=== PATIENT | male | born 1980 | race Caucasian/White ===

== ENCOUNTER 2022-08-23 13:05 | Outpatient (REF) | payer OTHER, SELFPAY ==
--- NOTE | ~2022-08-23 | XR_ITS ---
EXAMINATION: XR ABDOMEN KUB CLINICAL INDICATION: Constipation. COMPARISON: None TECHNIQUE: AP view of the abdomen. FINDINGS: There is a nonobstructive bowel gas pattern. Mild to moderate stool seen within the colon more pronounced proximally. No radiopaque renal calculi. Mild bilateral hip degenerative joint changes are seen with cam femoral acetabular impingement, right greater than left. XR/XR KUB IMPRESSION: 1. Nonobstructive bowel gas pattern. 2. Mild to moderate colonic stool burden. 2. Degenerative changes in the hips bilaterally as detailed above.
[2022-08-23 15:14] LABS: MANUAL DIFF FLAG NO
[2022-08-23 15:17] LABS: Basophils Percent Auto 0.7 % (0-2); Eosinophils Absolute Auto 0.1 X10*3/uL (0.0-0.4); Eosinophils Percent Auto 1.7 % (0-4); Hematocrit 47.4 % (42.0-52.0); Imm Gran Abs Auto 0.03 X10*3/uL (0.00-0.03); Imm Gran Pct Auto 0.5 % (0.0-0.4); Lymphocytes Absolute Auto 1.7 X10*3/uL (1.2-4.9); Lymphocytes Percent Auto 29.1 % (20-40); Mean Corpuscular HGB Conc 33.8 g/dl (31.0-36.0); Mean Corpuscular Volume 91.9 fL (80.0-98.0); Monocytes Absolute Auto 0.4 X10*3/uL (0.1-1.2); Monocytes Percent Auto 7.4 % (2-11); Neutrophils Absolute Auto 3.6 x10*3/uL (2.0-8.3); Neutrophils Percent Auto 60.6 % (45-73); Platelet Count 265 X10*3/uL (160-400); Red Blood Count 5.16 X10*6/uL (4.60-5.80); Red Cell Distribution Width 12.4 % (11.0-16.0); White Blood Count 5.9 X10*3/uL (4.8-10.8)
[2022-08-23 15:27] LABS: Alanine Aminotransferase 25 U/L (0-40); Albumin Level 4.2 g/dL (3.5-5.0); Alkaline Phosphatase 48 U/L (39-117); Anion Gap 13 (12-20); Aspartate Amino Transferase 35 U/L (5-37); Bilirubin Direct 0.3 mg/dL (0.0-0.5); Bilirubin Total 0.6 mg/dL (0.0-1.0); Blood Urea Nitrogen 9 mg/dL (9-16); Carbon Dioxide 29 mmol/L (22-29); Chloride 106 mmol/L (96-108); Estimated Glomerular Filt Rate > 60; Glucose Random 91 mg/dL (60-115); Potassium 4.2 mmol/L (3.3-5.1); Sodium 144 mmol/L (135-145); Total Protein 6.6 g/dL (6.5-8.0)
[2022-08-23 15:33] LABS: Amylase 48 U/L (28-100)
== END 2022-08-23 13:06 | disposition home or self-care (01) ==
LOC: HO.HMGCX 13:05
PROVIDERS: Visit Provider Physician Assistant
DX: K59.00 Constipation, unspecified (principal); R10.13 Epigastric pain
CPT/HCPCS: 36415; 74018; 80048; 80076; 82150; 85025

== ENCOUNTER 2022-10-21 11:43 | Outpatient (REF) | payer OTHER, SELFPAY ==
[2022-10-21 15:02] LABS: TSH reflex Free T4 1.08 uIU/mL (0.32-4.0); Vitamin D 25-OH Total 22.9 ng/mL (>30)
[2022-10-21 15:44] LABS: Vitamin B12 442 pg/mL (200-900)
[2022-10-21 15:50] LABS: Folate 7.9 ng/mL (> or = 4.0)
[2022-10-28 12:19] LABS: Testosterone, Free 504.4 pg/mL (35.0-155.0); Testosterone, Total 2335 ng/dL (250-1100)
== END 2022-10-21 11:44 | disposition home or self-care (01) ==
LOC: HO.HMGCLDS 11:43
PROVIDERS: PCP Internal Medicine; Visit Provider Internal Medicine
DX: R53.82 Chronic fatigue, unspecified (principal)
CPT/HCPCS: 36415; 82306; 82607; 82746; 84402; 84403; 84443

== ENCOUNTER 2022-10-22 09:19 | Outpatient (REF) | payer OTHER, SELFPAY | END 2022-10-22 09:20 | disposition home or self-care (01) | LOC: HO.HMGCLNP 09:19 | PROVIDERS: PCP Internal Medicine; Visit Provider Nurse Practitioner Family | DX: R10.13 Epigastric pain (principal); K59.00 Constipation, unspecified | CPT/HCPCS: 87338 ==

== ENCOUNTER 2023-02-16 08:52 | Day surgery (SDC) | payer BC, SELFPAY ==
[2023-02-11 11:41] VITALS: BMI 28.1
--- NOTE | 2023-02-16 09:19 | MHC.SHP ---
Pre-Procedural Eval Section A Date of Service: 02/16/23 The patient is an INPATIENT: No The History & Physical has been completed within 30 days and I have reviewed it.: No Section B Chief Complaint: rectal bleeding,reflux disease,bacterial intestina Relevant Family History (Specify if Yes): No Relevant Social History: Tobacco Use (FORMER SMOKER) Present Medications: see Short Stay Collaborative assessment Medical History: Significant History (ADD (attention deficit disorder) Chronic fatigue Chronic GERD History of Helicobacter pylori infection Hypogonadism in male Irregular bowel habits) History of Previous Operations: No relevant previous surgery Allergies: Allergies Allergy/AdvReac Type Severity Reaction Status Date / Time No Known Allergies Allergy Verified 02/16/23 09:06 Review of Systems Sugical H&P ROS: Negative: Constitution, Cardiovascular, Respiratory and Gastrointestinal Exam Surgical H&P Exam: Normal: Heart, Normal: Lungs, Normal: Extremities and Normal: Abdomen Plan Diagnosis/Plan: Unchanged I have reviewed the history and physical and performed a pertinent physical examination on my patient. No changes have occurred unless specified. Time Spent With Patient Time: Total time managing care of this patient today ____ minutes.
[2023-02-16 09:22] VITALS: BP 137/75; PULSE 76; RESP 18; TEMP 36.6; O2SAT 100
--- NOTE | 2023-02-16 09:48 | P.CONAN_ITS ---
FORM[facility], LATER [facility] Active Problems Active Problems: All Active Problems (Updated 10/29/22 @ 16:19 by Winsome Ruano MD) Abdominal pain (Acute) Irregular bowel habits (Acute) Hypogonadism in male (Acute) ADD (attention deficit disorder) (Acute) Chronic GERD (Acute) Chronic fatigue (Acute) Past Medical History Medical History ADD (attention deficit disorder) Chronic fatigue Chronic GERD History of Helicobacter pylori infection Hypogonadism in male Irregular bowel habits Functional capacity: independent ambulation Family History Family history of problems with anesthesia: No Surgical History Surgical History (Updated 02/16/23 @ 09:24 by Jayna Parson RN) Hx of appendectomy Hx of left inguinal hernia repair Social History Social History Housing: House Patient Tobacco Use Status: Former Tobacco user e-Cigarette/Vaping Use: Currently Using Are you DNR?: No Advance Directives: No Advance Directives Information Provided: Yes Nutrition Risks: No Nutritional Risk Current occupational status: other Current occupation: self employed Cognitive needs: No Hearing needs: No Vision needs: No Meds Allergies Allergy/AdvReac Type Severity Reaction Status Date / Time No Known Allergies Allergy Verified 02/16/23 09:06 Active Medications: Current Medications Lactated Ringer's (Lr) 1,000 mls @ 50 mls/hr IVCONT .Q20H CHARLIE Home Medications Medication Instructions Recorded Confirmed Last Taken Type anastrozole 1 mg tablet 0 mg PO 08/23/22 10/29/22 Unknown History dextroamphetamine sulfate 15 mg 15 mg PO BID 08/23/22 02/16/23 Unknown History capsule,extended release psyllium husk 3 gram/3 gram oral g PO 08/23/22 10/29/22 Unknown History powder testosterone cypionate 100 mg/mL 50 mg IM Q2W 08/23/22 02/16/23 Unknown History intramuscular oil alprazolam 0.5 mg tablet 0.5 mg PO DAILY PRN Anxiety 10/29/22 02/16/23 Unknown History Exam Exam Date and Time: February 16, 2023 0948 Height,Weight and Vital Signs: Height 5 ft 11 in Weight 91.626 kg Last Vital Signs Temp 97.9 F 02/16/23 09:22 Pulse 76 02/16/23 09:22 Resp 18 02/16/23 09:22 BP 137/75 02/16/23 09:22 Pulse Ox 100 02/16/23 09:22 O2 Del Method Room Air 02/16/23 09:22 Airway Mallampati Class: II TM Dist: >3cm Neck ROM: Full Heart: RRR Lungs: CTA Assessment and Plan Final Anesthetic Review Family History of Problems with Anesthesia: No NPO: Yes ASA Class: II Final Preanesthetic Review: Meds/Allgs Chart Reviewed and Consent Obtained/Reviewed Patient Risk: Low Procedure Risk: Low Anesthetic Plan Anesthetic Plan: MAC: Disposition: Standard PACU
[2023-02-16] MEDS: Lactated Ringers 1,000 ML 50 ML IVCONT (10:01)
--- NOTE | 2023-02-16 10:16 | PM.OP ---
Brief Operative Note Date of Service: 02/16/23 Pre-op diagnosis: colon cancer screening, GERD, dyspepsia, abdominal bloating Post-op diagnosis: other ( GERD, GASTRITIS, COLON POLYP, DIVERTICULOSIS, HEMORRHOIDS) Procedure: FLEXIBLE TRANSORAL UPPER GASTROINTESTINAL ENDOSCOPY WITH BIOPSIES AND COLONOSCOPY TILL CECUM WITH BIOPSIES AND SNARE POLYPECTOMY Surgeon: Carissa Hernandez MD Anesthesia: MAC Was an Serials Librarian used for this Procedure?: Yes Serials Librarian: Khanh Jolly Estimated blood loss (mL): 1 Pathology: other (A) BX Small Bowel (R/O Celiac's) B) BX Gastric Antrum (R/O H.Pylori) C) BX GE Junction (R/O Desir's) D) BX Right Colon (R/O Microscopic Colitis) E) Polyp Ascending Colon F) ) Condition: stable Disposition: PACU
--- NOTE | 2023-02-16 10:17 | P.OP_ITS ---
Operative Note Operative Note Date of Service: 02/16/23 Narrative: Pre-op diagnosis: colon cancer screening, GERD, dyspepsia, abdominal bloating Post-op diagnosis:?other ( GERD, GASTRITIS, COLON POLYP, DIVERTICULOSIS, HEMORRHOIDS) Surgeon: Carissa Hernandez MD Anesthesia:?MAC FLEXIBLE TRANSORAL UPPER GASTROINTESTINAL ENDOSCOPY WITH BIOPSIES AND COLONOSCOPY TILL CECUM WITH BIOPSIES AND SNARE POLYPECTOMY UPPER ENDOSCOPY Consent: Indications for the procedure and potential complications of bleeding, perforation, reaction to medications and missed diagnosis were discussed with the patient and informed consent was obtained. Instrument: Olympus GIF H 190 mid size upper endoscope Monitoring: Vital signs and clinical assessment, continuous EKG monitoring, Pulse oximetry, Carbon Dioxide monitoring and blood pressure monitoring were done throughout the procedure. Procedure: The patient was placed in the left lateral decubitis position and pre-procedure medications were administered and a bite block was placed. The endoscope was inserted into the mouth and advanced under direct vision to the third part of duodenum. A careful inspection was made as the upper endoscope was withdrawn including a retroflexed examination of the proximal stomach; Findings and interventions are described below. Findings: Larynx: Normal Esophagus: GE junction at 40 cms. A single 1 cms healing erosion at GE junction. Irregular Z line - biopsied to check for Desir's. Stomach: Mild gastric erythema. Biopsies were obtained. Grade 2 flap valve on retroflexed examination of the cardia. Duodenum: Normal bulb and descending duodenum. Biopsies obtained from 3rd part of duodenum to check for celiac sprue. Intervention: Biopsies as noted above COLONOSCOPY PROCEDURE NOTE Consent: Indications for the procedure and potential complications of bleeding, perforation, reaction to medications and missed diagnosis were discussed with the patient and informed consent was obtained. Instrument: Olympus PCF H 190 L variable stiffness pediatric colonoscope Monitoring: Vital signs and clinical assessment, intermittent blood pressure monitoring, continuous EKG monitoring, Pulse oximetry and Carbon Dioxide monitoring were done throughout the procedure. Colon withdrawl time was 18 minutes. Procedure: The patient was placed in the left lateral decubitis position and pre-procedure medications were administered. After a digital rectal examination of the ano-rectum, the video colonoscope was inserted into the rectum and advanced through the colon to the cecum. The colonoscope was slowly withdrawn in a retrograde panoramic fashion and the colon mucosa was carefully examined including a retroflexed view of the rectum. Findings and interventions are described below. Procedure Difficulty: colon was long and tortuous, there was spasm and recurrent loop formation. No maneuvers were required Findings: Terminal Ileum: Distal 8 cms was examined and apeared normal Cecum: partially evaluated due to some undigested vegetable matter which could not be suctioned Ascending Colon: A 6-7 mm sessile polyp removed with a cold snare Transverse Colon: Normal Descending Colon: Normal Sigmoid Colon: Moderate diverticulosis Rectum: Normal Ano-rectum: Moderate internal hemorrhoids and perianal skin tags Colon preparation: Good after copious irrigation Impression and Post Procedure Diagnosis: Endoscopy Findings: ESOPHAGUS: GE junction at 40 cms. A single 1 cms healing erosion at GE junction. Irregular Z line - biopsied to check for Desir's. STOMACH: Mild gastritis DUODENUM: Normal - biopsied to check for celiac sprue Colonoscopy Findings: One small polyp removed Moderate diverticulosis seen in the sigmoid colon Moderate hemorrhoids on retroflexed exam. Plan: Await pathology results Patient has an appointment on 03/02/23 in the GI Clinic with Briana Ward FNP- BC . Repeat Colonoscopy interval based on path results - in 5 years if polyps are adenomatous and due to suboptimal prep in the cecum. Above findings were reviewed with the patient and GERD, colon polyps and diverticulosis handouts were given in the discharge area
[2023-02-16 11:14] VITALS: BP 89/43; PULSE 71; RESP 16; TEMP 36.2; O2SAT 96
[2023-02-16 11:29] VITALS: BP 102/42; PULSE 60; RESP 16; O2SAT 96
[2023-02-16 11:37] VITALS: BP 129/90; PULSE 70; RESP 16; O2SAT 100
[2023-02-16 11:40] VITALS: BP 118/60; PULSE 64; RESP 16; TEMP 36.6; O2SAT 100
--- NOTE | 2023-02-16 11:45 | HO.POSTANES ---
Post Anesthesia Evaluation Post Anesthesia Evaluation Vital Signs: Vital Signs Temp Pulse Resp BP Pulse Ox O2 Del Method 02/16/23 11:40 97.9 F 64 16 118/60 100 Room Air 02/16/23 11:37 70 16 129/90 H 100 Room Air 02/16/23 11:29 60 16 102/42 L 96 Room Air 02/16/23 11:14 97.2 F 71 16 89/43 L 96 Room Air 02/16/23 09:22 97.9 F 76 18 137/75 100 Room Air Anesthesia: Monitored Mental Status: Awake Pain Control: Satisfactory Nausea/Vomiting: None Hydration: Adequate Anesthesia-Related Issues: No Anes. Related Issues
== END 2023-02-16 12:06 | disposition home or self-care (01) ==
PROVIDERS: PCP Internal Medicine; Visit Provider Internal Medicine Gastroenterology
PROC: (CPT 45385; principal; 2023-02-16 10:00)
DX: K62.5 Hemorrhage of anus and rectum (principal); D12.2 Benign neoplasm of ascending colon; K57.30 Diverticulosis of large intestine without perforation or abscess without bleeding; K64.8 Other hemorrhoids; K58.1 Irritable bowel syndrome with constipation; K21.9 Gastro-esophageal reflux disease without esophagitis; K29.50 Unspecified chronic gastritis without bleeding; K20.80 Other esophagitis without bleeding; A04.8 Other specified bacterial intestinal infections; R53.82 Chronic fatigue, unspecified; E29.1 Testicular hypofunction; F98.8 Other specified behavioral and emotional disorders with onset usually occurring in childhood and adolescence; Z79.899 Other long term (current) drug therapy; Z87.891 Personal history of nicotine dependence
CPT/HCPCS: 45385; 45380; 43239; 88305; 88342

== ENCOUNTER → 2023-03-02 10:03 | Outpatient (BNVA) | payer BC, SELFPAY | PROVIDERS: PCP Internal Medicine; Visit Provider Nurse Practitioner Family | DX: Z13.89 Encounter for screening for other disorder (principal) ==

== ENCOUNTER 2023-03-13 09:18 | Day surgery (SDC) | payer BC, SELFPAY ==
[2023-03-10 14:49] VITALS: BMI 29.0
--- NOTE | 2023-03-12 10:30 | P.CONAN_ITS ---
Documented by User: Landy Daniel NP 03/12/23 10:30 HPI - Anesthesia Eval Consult details Narrative: 42yo M for Hemorrhoidectomy s/p EGD/[place] 01/2023 with MAC [facility] Active Problems Active Problems: All Active Problems (Updated 03/02/23 @ 14:27 by ROBERT Tompkins) Hemorrhoids (Acute) Diverticulosis (Acute) Tubular adenoma (Acute) Abdominal pain (Acute) Irregular bowel habits (Acute) Hypogonadism in male (Acute) ADD (attention deficit disorder) (Acute) Chronic GERD (Acute) Chronic fatigue (Acute) Past Medical History Medical History (Updated 03/02/23 @ 14:27 by ROBERT Tompkins) ADD (attention deficit disorder) Chronic fatigue Chronic GERD Diverticulosis History of Helicobacter pylori infection Hypogonadism in male Irregular bowel habits Tubular adenoma Tubular adenoma of colon Family History Family history of problems with anesthesia: No Surgical History Surgical History (Updated 03/02/23 @ 15:18 by Chuy Ware MD) History of esophagogastroduodenoscopy (EGD) Hx of appendectomy Hx of colonoscopy Hx of left inguinal hernia repair Social History Social History (Updated 03/02/23 @ 15:02 by LISA Linares) Housing: House Alcohol intake: current Alcohol intake frequency: a few times a week Alcohol type: hard liquor Patient Tobacco Use Status: Former Tobacco user e-Cigarette/Vaping Use: Currently Using Second Hand Smoke Exposure: No Use of substances other than those prescribed or required for medical reasons: No Are you DNR?: No Advance Directives: No Advance Directives Information Provided: Yes Advance Directives on File: No Current occupational status: other Current occupation: self employed Cognitive needs: No Hearing needs: No Vision needs: No Meds Allergies Allergy/AdvReac Type Severity Reaction Status Date / Time No Known Allergies Allergy Verified 03/02/23 15:01 Home Medications Medication Instructions Recorded Confirmed Last Taken Type anastrozole 1 mg tablet 1 mg PO USEASDIRECTD 08/23/22 03/10/23 Unknown History dextroamphetamine sulfate 15 mg 15 mg PO BID 08/23/22 03/10/23 Unknown History capsule,extended release psyllium husk 3 gram/3 gram oral g PO 08/23/22 03/02/23 Unknown History powder testosterone cypionate 100 mg/mL 50 mg IM Q2W 08/23/22 03/10/23 Unknown History intramuscular oil alprazolam 0.5 mg tablet 0.5 mg PO DAILY PRN Anxiety 10/29/22 03/10/23 Unknown History Exam Exam Date and Time: March 12, 2023 1030 Height,Weight and Vital Signs: Height 5 ft 11 in Weight 94.347 kg Assessment and Plan Assessment Anesthesia Assessment: Chart Reviewed Final Anesthetic Review Family History of Problems with Anesthesia: No Documented by User: Giorgio Mariano MD 03/13/23 10:36 PMFSH Past Medical History Medical History (Updated 03/02/23 @ 14:27 by Briana Ward [facility]) ADD (attention deficit disorder) Chronic fatigue Chronic GERD Diverticulosis History of Helicobacter pylori infection Hypogonadism in male Irregular bowel habits Tubular adenoma Tubular adenoma of colon Surgical History Surgical History (Updated 03/02/23 @ 15:18 by Chuy Ware MD) History of esophagogastroduodenoscopy (EGD) Hx of appendectomy Hx of colonoscopy Hx of left inguinal hernia repair History of Problems with Anesthesia: No Social History Social History (Updated 03/02/23 @ 15:02 by LISA Linares) Housing: House Alcohol intake: current Alcohol intake frequency: a few times a week Alcohol type: hard liquor Patient Tobacco Use Status: Former Tobacco user e-Cigarette/Vaping Use: Currently Using Second Hand Smoke Exposure: No Use of substances other than those prescribed or required for medical reasons: No Are you DNR?: No Advance Directives: No Advance Directives Information Provided: Yes Advance Directives on File: No Current occupational status: other Current occupation: self employed Cognitive needs: No Hearing needs: No Vision needs: No Meds Allergies Allergy/AdvReac Type Severity Reaction Status Date / Time No Known Allergies Allergy Verified 03/02/23 15:01 Home Medications Medication Instructions Recorded Confirmed Last Taken Type anastrozole 1 mg tablet 1 mg PO USEASDIRECTD 08/23/22 03/10/23 Unknown History dextroamphetamine sulfate 15 mg 15 mg PO BID 08/23/22 03/10/23 Unknown History capsule,extended release psyllium husk 3 gram/3 gram oral g PO 08/23/22 03/02/23 Unknown History powder testosterone cypionate 100 mg/mL 50 mg IM Q2W 08/23/22 03/10/23 Unknown History intramuscular oil alprazolam 0.5 mg tablet 0.5 mg PO DAILY PRN Anxiety 10/29/22 03/10/23 Unknown History Exam Airway Mallampati Class: II TM Dist: >3cm Neck ROM: Full Heart: rrr Lungs: cta Assessment and Plan Assessment Anesthesia Assessment: Anesthesia Plan Discussed Final Anesthetic Review History of Problems with Anesthesia: No NPO: Yes ASA Class: II Final Preanesthetic Review: No Changes in Pt Med Stat and Consent Obtained/Reviewed Patient Risk: Intermediate Procedure Risk: Intermediate Anesthetic Plan Anesthetic Plan: GA Disposition: Standard PACU
--- NOTE | 2023-03-12 11:41 | MHC.SHP ---
Pre-Procedural Eval Section A Date of Service: 03/12/23 The patient is an INPATIENT: No Changes since office visit: No Cold of Flu in the past 2 weeks, No New Medical Problems, No Changes in Medication and No Patient answered all questions The History & Physical has been completed within 30 days and I have reviewed it.: Yes Section B Chief Complaint: Unspecified hemorrhoids Allergies: Allergies Allergy/AdvReac Type Severity Reaction Status Date / Time No Known Allergies Allergy Verified 03/02/23 15:01 Plan I have reviewed the history and physical and performed a pertinent physical examination on my patient. No changes have occurred unless specified. Time Spent With Patient Time: Total time managing care of this patient today ____ minutes.
[2023-03-13 10:08] VITALS: BP 120/72; PULSE 70; RESP 16; TEMP 36.7; O2SAT 96
[2023-03-13] MEDS: Lactated Ringers 1,000 ML 100 ML IVCONT (10:09)
--- NOTE | 2023-03-13 11:06 | P.OP_ITS ---
Operative Note Operative Note Date of Service: 03/13/23 Narrative: Preoperative diagnosis: [] Symptomatic external and internal hemorrhoids Postop diagnosis: [] Save Procedure [] hemorrhoidectomy internal and external Surgeon: [] Chaz Population Health Manager: [] Type of Anesthesia: [] General Indication for surgery: [] Symptomatic hemorrhoids Findings: [] At the 3 and 07:00 o'clock positions, large and medium-sized hemorrhoids. Rectal exam demonstrated no other pathology. Patient is brought to the operating room, placed in the operative table in a supine position, after adequate level of general anesthesia was induced, patient was placed in lithotomy position and rectal exam performed. Next the anorectal area was prepped and draped in usual sterile fashion. The symptomatic hemorrhoids at the 3 and 07:00 o'clock positions reach grasped and transected at their base using double firing of many ligature device. Specimens were sent to pathology. Wounds were irrigated, secured hemostasis, and infiltrated with 0.5% Marcaine with 1% lidocaine mixture. Gelfoam plug followed by dressing were applied. Sponge, needle, and instrument counts were reported to be correct. Patient tolerated the procedure well and emerged anesthesia stable condition. EBL minimal
[2023-03-13 11:18] VITALS: BP 113/61; PULSE 72; RESP 16; TEMP 36.6; O2SAT 96
[2023-03-13 11:23] VITALS: BP 111/68; PULSE 66; RESP 16; O2SAT 97
[2023-03-13 11:28] VITALS: BP 116/62; PULSE 70; RESP 16; O2SAT 97
[2023-03-13] MEDS: oxyCODONE HCl Immed Release 5 MG TABLET PO (11:28)
[2023-03-13 11:33] VITALS: BP 105/67; PULSE 70; RESP 16; O2SAT 98
[2023-03-13 11:48] VITALS: BP 131/67; PULSE 62; RESP 16; TEMP 36.6; O2SAT 98
== END 2023-03-13 12:15 | disposition home or self-care (01) ==
PROVIDERS: PCP Internal Medicine; Visit Provider Surgery
PROC: (CPT 46260; principal; 2023-03-13 11:10)
DX: K64.8 Other hemorrhoids (principal); K64.4 Residual hemorrhoidal skin tags; K59.09 Other constipation; K57.30 Diverticulosis of large intestine without perforation or abscess without bleeding; Z86.010 Personal history of colon polyps; K21.9 Gastro-esophageal reflux disease without esophagitis; Z86.19 Personal history of other infectious and parasitic diseases; F98.8 Other specified behavioral and emotional disorders with onset usually occurring in childhood and adolescence; R53.82 Chronic fatigue, unspecified; Z79.899 Other long term (current) drug therapy; Z87.891 Personal history of nicotine dependence
CPT/HCPCS: 46260; 88304; J0131; J0690; J1100; J1885; J2405; J2795

== ENCOUNTER → 2023-03-20 10:09 | Outpatient (BNVA) | payer BC, SELFPAY | PROVIDERS: PCP Internal Medicine; Visit Provider Surgery | DX: Z13.89 Encounter for screening for other disorder (principal) ==

== ENCOUNTER → 2023-04-13 10:13 | Outpatient (BNVA) | payer BC, SELFPAY | PROVIDERS: PCP Internal Medicine; Visit Provider Surgery ==

== ENCOUNTER → 2023-05-14 14:12 | Outpatient (BNVA) | payer BC, SELFPAY | PROVIDERS: PCP Internal Medicine; Visit Provider Surgery ==

== ENCOUNTER 2023-06-30 13:46 | Outpatient (AMB) | payer BC, SELFPAY ==
--- NOTE | 2023-06-30 13:54 | MHC.OFFVIS ---
Intake Vital Signs 06/30/23 14:00 Height 5 ft 11 in Weight 203 lb BMI 28.3 BP 118/74 Blood Pressure Location Lt brachial Position Sitting Intake Visit Reasons: wound check, post hemorrhoidectomy Intake Note: This patient presents for an assessment for a wound check status post hemorrhoidectomy. Patient c/o; reports leakage, denies problems with bowel movements. 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 He has a marked improvement of his anorectal symptoms. He has a minimal staining/drainage. He is tolerating a diet. He is having normal bowel habits. He has no other GI issues or complaints. [facility] Medical History ADD (attention deficit disorder) Annual visit for general adult medical examination with abnormal findings Chronic fatigue Chronic GERD Diverticulosis History of Helicobacter pylori infection Hypogonadism in male Irregular bowel habits Muscle ache of extremity Tubular adenoma of colon Surgical History Hemorrhoids History of esophagogastroduodenoscopy (EGD) History of hemorrhoidectomy (03/13/23) Hx of appendectomy Hx of colonoscopy Hx of left inguinal hernia repair Social History Housing: House Alcohol intake: current Alcohol intake frequency: a few times a week Alcohol type: hard liquor Patient Tobacco Use Status: Former Tobacco user e-Cigarette/Vaping Use: Never Used Second Hand Smoke Exposure: No Current occupational status: other Current occupation: self employed Cognitive needs: No Hearing needs: No Vision needs: No Physical Exam Vital Signs: Last Vital Signs BP 118/74 06/30/23 14:00 BMI result Body Mass Index 28.3 GI Other: Anorectal wounds demonstrated almost complete healing. No evidence of any infection or drainage Assessment & Plan Assessment & Plan (1) Hemorrhoids: Code(s): K64.9 - Unspecified hemorrhoids Plan Patient has been given local instructions, and continue stool softeners, and will follow-up p.r.n.. Coding Level of Care Code Global (75409) Diagnoses Hemorrhoids K64.9
[2023-06-30 14:00] VITALS: BP 118/74; BMI 28.3
== END 2023-06-30 14:14 | disposition home or self-care (01) ==
PROVIDERS: PCP Internal Medicine; Visit Provider Surgery
DX: K64.9 Unspecified hemorrhoids (principal)
CPT/HCPCS: 99213

== ENCOUNTER → 2023-06-30 13:46 | Outpatient (BNVA) | payer BC, SELFPAY | PROVIDERS: PCP Internal Medicine; Visit Provider Surgery ==

== ENCOUNTER 2023-07-04 09:21 | Outpatient (AMB) | payer BC, SELFPAY ==
[2023-07-04 09:55] VITALS: BP 136/72; PULSE 72; TEMP 36.6; O2SAT 97
--- NOTE | 2023-07-04 09:55 | MHC.OFFWIV ---
Intake Vital Signs 07/04/23 09:55 Height 5 ft 11 in BP 136/72 Blood Pressure Location Rt brachial Position Sitting Pulse 72 Pulse Source Pulse Oximeter Temp 97.8 F Temp Source Temporal Artery Scan Pulse Oximetry (%) 97 Oxygen Delivery Method Room Air Intake Visit Reasons: EST/left arm pain Intake Note: pt is here for c/o right arm pain, 1 month denies injury Patient Tobacco Use Status: Former Tobacco user Allergies No Known Allergies Allergy (Verified 07/04/23 09:56) Do you need a note to return to daycare/school/sports/work: No HPI EST/left arm pain HPI Details Patient is a 43-year-old male comes to the walk-in clinic complaining of 1 month of left arm pain that started after repetitive work duties, including sanding with the right arm. There was no fall or acute trauma. Pain has started the day following the work duties. No prior history arm issues. No radicular pain, including no chest pain, cough, shortness of breath, fatigue, weakness or dizziness, or other significant associated symptoms. The extremity has no tingling currently, although he states there was some while running a few days ago. [facility] Medical History ADD (attention deficit disorder) Annual visit for general adult medical examination with abnormal findings Chronic fatigue Chronic GERD Diverticulosis History of Helicobacter pylori infection Hypogonadism in male Irregular bowel habits Muscle ache of extremity Tubular adenoma of colon Surgical History Hemorrhoids History of esophagogastroduodenoscopy (EGD) History of hemorrhoidectomy (03/13/23) Hx of appendectomy Hx of colonoscopy Hx of left inguinal hernia repair Social History Housing: House Alcohol intake: current Alcohol intake frequency: a few times a week Alcohol type: hard liquor Patient Tobacco Use Status: Former Tobacco user e-Cigarette/Vaping Use: Never Used Second Hand Smoke Exposure: No Current occupational status: other Current occupation: self employed Cognitive needs: No Hearing needs: No Vision needs: No Review of Systems Const All systems reviewed & are unremarkable except as noted in HPI and below Physical Exam Vital Signs: Last Vital Signs Temp 97.8 F 07/04/23 09:55 Pulse 72 07/04/23 09:55 BP 136/72 07/04/23 09:55 Pulse Ox 97 07/04/23 09:55 Oxygen Delivery Method Room Air 07/04/23 09:55 Const General: cooperative, healthy appearing, comfortable, no acute distress, alert, awake, Physically active and well groomed; No anxious, diaphoretic, ill appearing, intoxicated appearing, poor hygiene or tired appearing Nutritional Appearance: average body habitus Orientation/consciousness: oriented to person Limitations: no limitations Resp Effort & Inspection: normal respiratory effort Cardio Palpation: normal PMI Rate: regular rate Rhythm: regular rhythm Heart sounds: S1 normal heart sound present and S2 normal heart sound present Skin Other: Good color, warm and dry Neuro General: oriented to person Extrem General: Yes no clubbing, cyanosis or edema Right upper extremity: normal to inspection, full ROM, normal capillary refill, shoulder/upper arm (Normal exam) Details: normal to inspection and elbow/forearm (Slowly decreased strength of the right forearm due to pain) Details: normal to inspection, tenderness (Medial significantly but also lateral epicondyle) Location: of the lateral epicondyle and of the medial epicondyle, normal ROM and distal pulses intact; no swelling, no ecchymosis, no foreign bodies and no deformity; no cyanosis and no edema Psych Appearance: grossly normal Mental Status: mental status grossly normal Speech and movement: Normal speech and movement present Affect: normal affect Attitude: cooperative Thought process: Normal thought process present Insight: Good insight present (Psych) Judgement: Good judgement present (Psych) Assessment & Plan Assessment & Plan (1) Epicondylitis elbow, medial: Code(s): M77.00 - Medial epicondylitis, unspecified elbow Plan: Patient developed right medial epicondylitis and to a lesser extent lateral epicondylitis, after repetitive use as well as heavy vibrating to full use with work duties. He states that he works for himself. We discussed rest from aggravating factors, ice, compression, or a supportive elbow strap, and elevating the extremity, especially at night or whenever at rest. Gentle [id number] exercise discussed. He also works out at the gym, but we discussed resting from this for the next 2 weeks to allow healing time. He already has ibuprofen 800 mg at home, which he can start for the next 2 weeks, and we discussed taking it with food to avoid GI side effects. He does not have baseline high blood pressure, but we discussed monitoring it as it is a little elevated today. He will follow up if symptoms persist or worsen Coding Level of Care Code Est Pt Level 4 (51172) Diagnoses Epicondylitis elbow, medial M77.00
== END 2023-07-04 11:00 | disposition home or self-care (01) ==
PROVIDERS: PCP Internal Medicine; Visit Provider Physician Assistant Medical
DX: M77.00 Medial epicondylitis, unspecified elbow (principal)
CPT/HCPCS: 99214

== ENCOUNTER 2023-09-07 11:08 | Outpatient (AMB) | payer BC, SELFPAY ==
[2023-09-07 11:21] VITALS: BP 155/79; PULSE 69; BMI 28.7
--- NOTE | 2023-09-07 11:21 | A.OFFVIS_ITS ---
Intake Vital Signs 09/07/23 11:21 Height 5 ft 11 in Weight 205 lb 7.533 oz BMI 28.7 BP 155/79 H Blood Pressure Location Rt brachial Position Sitting Pulse 69 Intake Visit Reasons: 6 month follow up Intake Note: Patient presents to in office visit today in follow up of diverticulosis. CC: Patient reports acid reflux and constipation are well managed with medications. Denies having any new GI symptoms today. Residential Support Specialist Required: No Allergies No Known Allergies Allergy (Verified 07/04/23 09:56) HPI 6 month follow up HPI Details LAST VISIT: External hemorrhoid Patient reports to have external hemorrhoid that bothers him when he has a bowel movement. Will refer him to surgery GERD (gastroesophageal reflux disease) Continue omeprazole every morning. Patient reports occasional acid reflux at night time. Patient states that sometimes he stress eats late at night. Encourage patient try to avoid eating late at night and staying upright for minimum 3 hours after meals. Will give him script for famotidine. IBS (irritable bowel syndrome) Occasional postprandial abdominal bloating. Discussed with patient avoiding dietary triggers. Low FODMAP diet discussed with patient. Tubular adenoma Tubular adenoma without high-grade dysplasia or carcinoma found. Patient will need to return for colorectal screening in 5 years, sooner if clinically necessary. Diverticulosis Discussed with patient high-fiber diet. List of food high in fibre provided to patient. Patient denies having any abdominal pain or discomfort. Patient can continue taking psyllium husk. Status post colonoscopy Patient denies any ill effects from the prep, anesthesia procedure itself. Tubular adenoma found without high-grade dysplasia or carcinoma. Patient also had moderate diverticulosis of sigmoid colon. Diet discussed with patient. I will see him in 6 months, sooner on as needed basis. Patient is agreeable to this plan and verbalizes understanding of instructions. He was given the opportunity to ask questions and all questions answered. ? TODAY'S VISIT: Patient is here today for follow-up. Patient reports that he has been doing fairly well. Moving his bowels better. Takes fiber supplement which seems to be helpful. Patient also takes MiraLax every other day. Patient had hemorrhoidectomy March 13 and finally starting to feel better. Patient denies melena, hematochezia, unintentional weight loss or ribbon like stools. Patient reports that omeprazole is help him acid reflux. He takes famotidine on as needed basis at bedtime. Patient denies dyspepsia, dysphagia or odynophagia. Occasional symptoms of postprandial abdominal bloating and acid reflux depending on what he eats. Patient denies any other GI concerning symptoms. Denies any nausea or vomiting. Denies any abdominal pain or discomfort. Reports to have good appetite PFSH Medical History Annual visit for general adult medical examination with abnormal findings Muscle ache of extremity Diverticulosis Tubular adenoma of colon Irregular bowel habits History of Helicobacter pylori infection Hypogonadism in male ADD (attention deficit disorder) Chronic GERD Chronic fatigue Surgical History History of hemorrhoidectomy (03/13/23) Hemorrhoids History of esophagogastroduodenoscopy (EGD) Hx of colonoscopy Hx of left inguinal hernia repair Hx of appendectomy Social History Housing: House Alcohol intake: current Alcohol intake frequency: a few times a week Alcohol type: hard liquor Patient Tobacco Use Status: Former Tobacco user e-Cigarette/Vaping Use: Never Used Second Hand Smoke Exposure: No Current occupational status: other Current occupation: self employed Cognitive needs: No Hearing needs: No Vision needs: No Review of Systems Const Denies weight gain and Denies weight loss ENT Reports no additional complaints, Denies dysphagia and Denies odynophagia Card Reports no additional complaints Resp Reports no additional complaints GI Denies abdominal pain, Denies belching, Denies melena, Denies bloating, Denies change in bowel habits, Denies dysphagia, Denies excessive flatus, Denies dyspepsia, Denies heartburn, Denies diarrhea, Denies loose stools, Denies nausea, Denies odynophagia and Denies vomiting Reports no additional complaints Musc Reports no additional complaints Neuro Reports no additional complaints Psych Reports no additional complaints Endo Reports no additional complaints Physical Exam Vital Signs: Last Vital Signs Pulse 69 09/07/23 11:21 BP 155/79 H 09/07/23 11:21 BMI result Body Mass Index 28.7 Const General: healthy appearing, no acute distress and well developed Nutritional Appearance: well nourished Orientation/consciousness: patient oriented x3 HEENT Head: Yes normal to inspection, Yes normocephalic and Yes atraumatic Face and sinus: Yes normal facial exam Mouth: Normal oral and palatal mucosa present Throat: Yes posterior oropharynx normal, Yes tonsils normal and Yes uvula midline Eyes General: appearance normal, both eyes and all related structures Neck Neck: Yes normal visual inspection, Yes full ROM and Yes trachea midline Thyroid: Thyroid normal Resp Effort & Inspection: normal respiratory effort, able to speak in complete sentences, no tracheal deviation and symmetric chest movement Auscultation: clear to auscultation bilaterally Cardio Rate: regular rate Heart sounds: S1 normal heart sound present and S2 normal heart sound present GI Inspection: Yes normal to inspection and No distended Palpation (GI): Soft to palpation, not firm, nontender and No hepatosplenomegaly present Auscultation: normal bowel sounds General: Yes no CVA tenderness Back/Spine/Pelvis Back: no CVA tenderness Skin General skin exam: elasticity normal, turgor normal and dry skin Neuro General: patient oriented x3 Psych Appearance: grossly normal Mental Status: mental status grossly normal Speech and movement: Normal speech and movement present Assessment & Plan Assessment & Plan (1) Hemorrhoids: Code(s): K64.9 - Unspecified hemorrhoids Qualifiers: Hemorrhoid type: unspecified Qualified Code(s): K64.9 - Unspecified hemorrhoids (2) Diverticulosis: Code(s): K57.90 - Diverticulosis of intestine, part unspecified, without perforation or abscess without bleeding (3) Chronic GERD: Comment: EGD done by Dr. Hernandez 02/16/2023 Code(s): K21.9 - Gastro-esophageal reflux disease without esophagitis (4) Constipation: Code(s): K59.00 - Constipation, unspecified Qualifiers: Constipation type: slow transit constipation Qualified Code(s): K59.01 - Slow transit constipation Plan Patient was encouraged to avoid dietary triggers and late night snacking. Staying upright for minimum 3 hours after meals discussed with patient. Continue omeprazole and famotidine. Continue bowel regimen with fiber supplement. Patient can continue taking magnesium at bedtime and MiraLax every other day as needed. Patient was also encouraged to increase fluid intake and activity to promote better bowel motility. Patient was encouraged to call his surgeon for follow-up appointment that he missed couple weeks ago. I will see patient in 1 year, sooner on as needed basis. Patient is agreeable to this plan and verbalizes understanding of instructions. He was given the opportunity to ask questions and all questions answered. Thank you for allowing me to participate in his care Medications: Refilled omeprazole 20 mg PO DAILY 90 caps 3RF Coding Level of Care Code Est Pt Level 4 (46658) Diagnoses Hemorrhoids, unspecified hemorrhoid type K64.9 Hemorrhoid type: unspecified Diverticulosis K57.90 Chronic GERD K21.9 Slow transit constipation K59.01 Constipation type: slow transit constipation Time Spent (min) 35 Comment 20 minutes spent with patient and additional 15 minutes spent reviewing his records.
== END 2023-09-07 12:07 | disposition home or self-care (01) ==
PROVIDERS: PCP Internal Medicine; Visit Provider Nurse Practitioner Family
DX: K64.9 Unspecified hemorrhoids (principal); K57.90 Diverticulosis of intestine, part unspecified, without perforation or abscess without bleeding; K21.9 Gastro-esophageal reflux disease without esophagitis; K59.01 Slow transit constipation
CPT/HCPCS: 99214

== ENCOUNTER → 2023-09-07 11:21 | Outpatient (BNVA) | payer BC, SELFPAY | PROVIDERS: PCP Internal Medicine; Visit Provider Nurse Practitioner Family ==

== ENCOUNTER 2023-10-06 10:07 | Outpatient (AMB) | payer BC, SELFPAY ==
--- NOTE | 2023-10-06 10:14 | A.OFFVIS_ITS ---
Intake Vital Signs 10/06/23 10:21 Height 5 ft 11 in Weight 204 lb BMI 28.4 BP 150/67 H Blood Pressure Location Rt brachial Position Sitting Pulse 82 Intake Visit Reasons: s/p hemorrhoidectomy in February, having leakage Intake Note: Patient here s/p hemorrhoidectomy in February. C/o leakage, no bleeding. Patient states most bothersome is feeling constant moisture. When passing gas feels like gets butt swamp. [employer] Specialist Required: No Accompanied by: Self / Same As Patient Allergies No Known Allergies Allergy (Verified 10/06/23 10:20) HPI HPI Comments History of Present Illness Details Patient presents for follow-up. Occasional has drainage from his anorectal area. He wishes to have this evaluated. He is continent of stool and flatus. He is tolerating a diet. He takes several stool softeners including MiraLax. He has not had any constipation history. He denies any anal receptive activities. [facility] Medical History Annual visit for general adult medical examination with abnormal findings Muscle ache of extremity Diverticulosis Tubular adenoma of colon Irregular bowel habits History of Helicobacter pylori infection Hypogonadism in male ADD (attention deficit disorder) Chronic GERD Chronic fatigue Surgical History History of hemorrhoidectomy (03/13/23) Hemorrhoids History of esophagogastroduodenoscopy (EGD) Hx of colonoscopy Hx of left inguinal hernia repair Hx of appendectomy Social History Housing: House Alcohol intake: current Alcohol intake frequency: a few times a week Alcohol type: hard liquor Patient Tobacco Use Status: Former Tobacco user e-Cigarette/Vaping Use: Never Used Second Hand Smoke Exposure: No Current occupational status: other Current occupation: self employed Cognitive needs: No Hearing needs: No Vision needs: No Physical Exam Vital Signs: Last Vital Signs Pulse 82 10/06/23 10:21 BP 150/67 H 10/06/23 10:21 BMI result Body Mass Index 28.4 GI Other: Anorectal exam demonstrates no evidence of any obvious fistulas, well-healed hemorrhoidal wounds. No open draining areas. Question of a posterior anal fissure. Small external hemorrhoid. Assessment & Plan Assessment & Plan (1) Hemorrhoids: Code(s): K64.9 - Unspecified hemorrhoids Qualifiers: Hemorrhoid type: unspecified Qualified Code(s): K64.9 - Unspecified hemorrhoids Plan Because of the persistence of drainage and unclear etiology, current plan is to have the patient evaluated with Dr. Dk wills, colorectal surgeon for 2nd opinion and direct further therapy based on his recommendations. All questions were answered. Coding Level of Care Code Est Pt Level 3 (77350) Diagnoses Hemorrhoids, unspecified hemorrhoid type K64.9 Hemorrhoid type: unspecified
[2023-10-06 10:21] VITALS: BP 150/67; PULSE 82; BMI 28.4
== END 2023-10-06 10:35 | disposition home or self-care (01) ==
PROVIDERS: PCP Internal Medicine; Visit Provider Surgery
DX: K64.9 Unspecified hemorrhoids (principal)
CPT/HCPCS: 99213

== ENCOUNTER → 2023-10-06 10:07 | Outpatient (BNVA) | payer BC, SELFPAY | PROVIDERS: PCP Internal Medicine; Visit Provider Surgery ==

== ENCOUNTER 2023-10-19 08:26 | Outpatient (AMB) | payer BC, SELFPAY ==
--- NOTE | 2023-10-19 08:28 | A.OFFVIS_ITS ---
Intake Vital Signs 10/19/23 08:38 Height 5 ft 11 in Weight 208 lb 4 oz BMI 29.0 BP 148/64 H Blood Pressure Location Lt brachial Position Sitting Pulse 79 Intake Visit Reasons: 2nd opinion rectal problems(Chaz pt) Intake Note: Patient is seen in office for evaluation and treatment of hemorrhoids. Patient c/o: hx of hemorrhoidectomy 03/15, admits to discharge in the area, worse since last visit, 2nd opinion from Dr Ware, denies constipation, diarrhea, nausea, vomit Allergies No Known Allergies Allergy (Verified 10/19/23 08:36) Medication List - Last Reconciled 10/19/23 by Matheus Ortega MD alprazolam 0.5 mg PO DAILY PRN anastrozole 1 mg PO USEASDIRECTD cabergoline 0.25 mg PO ONCE famotidine (Pepcid) 20 mg PO BEDTIME omeprazole 20 mg PO DAILY polyethylene glycol 3350 17 grams PO .every other day psyllium husk grams PO testosterone cypionate 50 mg IM Q2W HPI 2nd opinion rectal problems(Chaz pt) HPI Details 43-year-old male here for persistent ulices discharge. He had undergone rectum x2 columns using a LigaSure with Dr. Ware last February,. He describes this discharged as a sensation of the area outside his anus to being ?moist? when he is walking. He says that this does not really show up on his underwear. He says that once in a while he would notice this clear discharge without any blood. He says that this has been going on since his surgery. He denies any incontinence. [facility] Medical History (Updated 10/19/23 @ 08:52 by Matheus Ortega MD) Anal discharge Annual visit for general adult medical examination with abnormal findings Muscle ache of extremity Diverticulosis Tubular adenoma of colon Irregular bowel habits History of Helicobacter pylori infection Hypogonadism in male ADD (attention deficit disorder) Chronic GERD Chronic fatigue Surgical History History of hemorrhoidectomy (03/13/23) Hemorrhoids History of esophagogastroduodenoscopy (EGD) Hx of colonoscopy Hx of left inguinal hernia repair Hx of appendectomy Housing: House Alcohol intake: current Alcohol intake frequency: a few times a week Alcohol type: hard liquor Patient Tobacco Use Status: Former Tobacco user e-Cigarette/Vaping Use: Never Used Second Hand Smoke Exposure: No Current occupational status: other Current occupation: self employed Cognitive needs: No Hearing needs: No Vision needs: No Review of Systems Const Denies chills and Denies fever(s) Card Denies chest pain, Denies dyspnea and Denies dyspnea on exertion Resp Denies cough, Denies dyspnea and Denies dyspnea on exertion GI Denies hematochezia and Denies change in bowel habits Denies hematuria and Denies difficulty urinating Musc Denies back pain and Denies limited range of motion Neuro Denies focal weakness and Denies convulsions Psych Denies depression and Denies mood swings Physical Exam Vital Signs: Last Vital Signs Pulse 79 10/19/23 08:38 BP 148/64 H 10/19/23 08:38 BMI result Body Mass Index 29.0 Const General: comfortable and no acute distress Orientation/consciousness: patient oriented x3 Neck Neck: Yes no lymphadenopathy Resp Auscultation: clear to auscultation bilaterally Cardio Rhythm: regular rhythm GI Other: Rectal exam shows an external hemorrhoid on the left, thrombosed but not tender, no sinus or fistula seen, no induration, no tenderness, no other lesions, anoscopy as described Palpation (GI): Soft to palpation, nontender and no guarding Neuro General: patient oriented x3 Office Procedures Anoscopy He was in inder-knife position. The anoscope was gently inserted. A full examination of the anal canal was done. Well-healed scar was seen on the right posterior from his previous hemorrhoidectomy. There were no lesions. There was no induration. There was no bleeding. There was no ulceration or any sinus or any evidence any fistula. There is no tenderness. He did have this external hemorrhoid on the left side that appears to be thrombosed without any tenderness [id number] Assessment & Plan Assessment & Plan (1) Anal discharge: Code(s): R19.8 - Other specified symptoms and signs involving the digestive system and abdomen Plan: He has this sensation of his anus being ?moist? when he is walking. He says that there is really dermal discharge if at all that he actually notices. Current exam does not reveal any induration or any evidence of any sinus or fistula. He does have this moderate size external hemorrhoid which is thrombosed on the left. It is likely that he has occasional leakage of mucus from his anal canal probably because of his residual hemorrhoid tissue. I have explained to him that at this time it does not appear that he will require any surgical procedure He is frustrated about this however and I told him that I will see him again in about 3 weeks to see how he is doing because he does have thrombosed external hemorrhoid on the left. Coding Level of Care Code Est Pt Level 3 (46582) Diagnoses Anal discharge R19.8 CPT Codes Details - CPT: 06946-[id number] ([id number])
[2023-10-19 08:38] VITALS: BP 148/64; PULSE 79; BMI 29.0
== END 2023-10-19 08:50 | disposition home or self-care (01) ==
PROVIDERS: PCP Internal Medicine; Visit Provider Surgery
DX: R19.8 Other specified symptoms and signs involving the digestive system and abdomen (principal)
CPT/HCPCS: 46600; 99213

== ENCOUNTER → 2023-10-19 08:26 | Outpatient (BNVA) | payer BC, SELFPAY | PROVIDERS: PCP Internal Medicine; Visit Provider Surgery | DX: K64.4 Residual hemorrhoidal skin tags (principal) | CPT/HCPCS: 46600 ==

== ENCOUNTER 2023-12-24 08:09 | Outpatient (AMB) | payer BC, SELFPAY ==
[2023-12-24 08:43] VITALS: BP 140/76; PULSE 74; TEMP 36.7; O2SAT 97; BMI 29.1
--- NOTE | 2023-12-24 08:43 | AM.OFFWIN_ITS ---
Intake Vital Signs 12/24/23 08:43 Height 5 ft 11 in Weight 208 lb 8 oz BMI 29.1 BP 140/76 H Blood Pressure Location Rt brachial Position Sitting Pulse 74 Pulse Source Pulse Oximeter Temp 98.0 F Temp Source Temporal Artery Scan Pulse Oximetry (%) 97 Oxygen Delivery Method Room Air Intake Visit Reasons: EP Lump on chest Intake Note: pt is here for c.o lump on chest, noticed lump last week. denies redness or swelling, when oushed down there is pain in the area Patient Tobacco Use Status: Never used Tobacco Allergies No Known Allergies Allergy (Verified 12/24/23 08:43) Do you need a note to return to daycare/school/sports/work: Yes HPI EP Lump on chest HPI Details This is a 43-year-old male patient who presents today for 2 main complaints. He states that about 1 week ago, he noticed a lump on the left side of his chest. He states this is somewhat firm and tender. Denies any fever or chills. Denies any history of breast cancer in family. Denies any drainage from area. He also reports since having a viral illness about 3-4 weeks ago, he has been constantly fatigued. He states he has very little energy, and is having difficulty with activities he did prior to his illness, such as going to the gym. [facility] Medical History Anal discharge Annual visit for general adult medical examination with abnormal findings Muscle ache of extremity Diverticulosis Tubular adenoma of colon Irregular bowel habits History of Helicobacter pylori infection Hypogonadism in male ADD (attention deficit disorder) Chronic GERD Chronic fatigue Surgical History History of hemorrhoidectomy (03/13/23) Hemorrhoids History of esophagogastroduodenoscopy (EGD) Hx of colonoscopy Hx of left inguinal hernia repair Hx of appendectomy Social History Housing: House Alcohol intake: current Alcohol intake frequency: a few times a week Alcohol type: hard liquor Patient Tobacco Use Status: Never used Tobacco e-Cigarette/Vaping Use: Never Used Second Hand Smoke Exposure: No Current occupational status: other Current occupation: self employed Cognitive needs: No Hearing needs: No Vision needs: No Review of Systems Const All systems reviewed & are unremarkable except as noted in HPI and below Physical Exam Vital Signs: Last Vital Signs Temp 98.0 F 12/24/23 08:43 Pulse 74 12/24/23 08:43 BP 140/76 H 12/24/23 08:43 Pulse Ox 97 12/24/23 08:43 Oxygen Delivery Method Room Air 12/24/23 08:43 BMI result Body Mass Index 29.1 Const General: cooperative, healthy appearing and no acute distress Nutritional Appearance: average body habitus Limitations: no limitations HEENT Head: Yes normal to inspection Ears: hearing grossly normal bilaterally General nose exam: Normal external nose present Neck Neck: Yes no lymphadenopathy Chest Other: There is an erythematous hair follicle with approximately 2cm circumferential induration surrounding it on left pectoral area, inferior and medial to nipple. No fluctuance. Mildly tender to palpation. No lymphadenopathy. Resp Effort & Inspection: normal respiratory effort Auscultation: clear to auscultation bilaterally Cardio Palpation: normal PMI Rate: regular rate Rhythm: regular rhythm Extrem General: Yes capillary refill normal and Yes no clubbing, cyanosis or edema Psych Appearance: grossly normal Mental Status: mental status grossly normal Speech and movement: Normal speech and movement present Attitude: cooperative Thought process: Normal thought process present Assessment & Plan Assessment & Plan (1) Folliculitis: Code(s): L73.9 - Follicular disorder, unspecified Plan: Presentation consistent with folliculitis of left pectoral area. Will start on antibiotics - Bactrim for MRSA coverage. Reviewed indications, use, possible side effects of these. Advised warm compresses 2-3 times per day. If this becomes increasingly large, red, painful, begins draining, or if he develops any fever, he should return to the clinic for further evaluation. He verbalizes understanding and agrees to plan. (2) Fatigue: Code(s): R53.83 - Other fatigue Qualifiers: Fatigue type: postviral fatigue syndrome Qualified Code(s): G93.31 - Postviral fatigue syndrome Plan: Will obtain fasting labs, CBC/BMP today and advised patient f/u with his PCP Dr. Ruano if this is an ongoing issue. Will call with lab results once these are available. Orders: Orders Complete Blood Count Auto Diff Today G93.31 - Postviral fatigue syndrome Basic Metabolic Panel Fasting Today G93.31 - Postviral fatigue syndrome Medications: New sulfamethoxazole-trimethoprim 800-160 mg 1 tab PO BID 14 tabs 0RF 7 days L73.9 - Follicular disorder, unspecified Coding Level of Care Code Est Pt Level 3 (25535) Diagnoses Folliculitis L73.9 Postviral fatigue syndrome G93.31 Fatigue type: postviral fatigue syndrome
== END 2023-12-24 09:22 | disposition home or self-care (01) ==
PROVIDERS: PCP Internal Medicine; Visit Provider Nurse Practitioner Family
DX: L73.9 Follicular disorder, unspecified (principal); G93.31 Postviral fatigue syndrome
CPT/HCPCS: 99213

== ENCOUNTER 2023-12-24 09:12 | Outpatient (REF) | payer BC, SELFPAY ==
[2023-12-24 11:10] LABS: MANUAL DIFF FLAG NO
[2023-12-24 11:41] LABS: Basophils Percent Auto 0.6 % (0-2); Eosinophils Absolute Auto 0.1 X10*3/uL (0.0-0.4); Eosinophils Percent Auto 1.6 % (0-4); Hemoglobin 16.7 g/dl (14.0-18.0); Imm Gran Abs Auto 0.04 X10*3/uL (0.00-0.03); Imm Gran Pct Auto 0.6 % (0.0-0.4); Lymphocytes Absolute Auto 1.7 X10*3/uL (1.2-4.9); Lymphocytes Percent Auto 26.9 % (20-40); Mean Corpuscular HGB Conc 33.4 g/dl (31.0-36.0); Mean Corpuscular Hemoglobin 30.5 pg (27.0-33.0); Mean Corpuscular Volume 91.4 fL (80.0-98.0); Mean Platelet Volume 10.1 fL (9.4-12.4); Monocytes Absolute Auto 0.5 X10*3/uL (0.1-1.2); Monocytes Percent Auto 8.1 % (2-11); Neutrophils Absolute Auto 3.9 x10*3/uL (2.0-8.3); Neutrophils Percent Auto 62.2 % (45-73); Platelet Count 273 X10*3/uL (160-400); Red Blood Count 5.47 X10*6/uL (4.60-5.80); Red Cell Distribution Width 12.1 % (11.0-16.0); White Blood Count 6.3 X10*3/uL (4.8-10.8)
[2023-12-24 12:10] LABS: Alanine Aminotransferase 18 U/L (0-40); Alkaline Phosphatase 65 U/L (39-117); Anion Gap 10 (12-20); Aspartate Amino Transferase 30 U/L (5-37); Bilirubin Total 0.7 mg/dL (0.0-1.0); Blood Urea Nitrogen 12 mg/dL (9-16); Calcium 9.3 mg/dL (8.4-10.2); Carbon Dioxide 32 mmol/L (22-29); Chloride 105 mmol/L (96-108); Cholesterol 165 mg/dL (<200); Estimated Glomerular Filt Rate > 60; Glucose Fasting 101 mg/dL (60-99); HDL Cholesterol 45 mg/dL (>40); LDL Cholesterol Calculated 102 mg/dL (<100); Potassium 4.5 mmol/L (3.3-5.1); Sodium 142 mmol/L (135-145); Total Protein 6.8 g/dL (6.5-8.0); Triglycerides 90 mg/dL (<150)
[2023-12-24 12:17] LABS: Vitamin B12 711 pg/mL (200-900)
[2023-12-24 12:21] LABS: Erythrocyte Sedimentation Rate 1 MM/HR (0-15)
[2023-12-24 12:32] LABS: TSH reflex Free T4 0.93 uIU/mL (0.32-4.0); Vitamin D 25-OH Total 97.9 ng/mL (>30)
[2023-12-25 15:34] LABS: CRP High Sensitivity 0.7 mg/L
== END 2023-12-24 09:13 | disposition home or self-care (01) ==
LOC: HO.HMGCLDS 09:12
PROVIDERS: PCP Internal Medicine; Visit Provider Nurse Practitioner Family
DX: Z00.01 Encounter for general adult medical examination with abnormal findings (principal); M79.18 Myalgia, other site; D36.9 Benign neoplasm, unspecified site; K21.9 Gastro-esophageal reflux disease without esophagitis; G93.31 Postviral fatigue syndrome
CPT/HCPCS: 36415; 80053; 80061; 82306; 82550; 82607; 82746; 84443; 85025; 85652; 86141

== ENCOUNTER 2024-04-20 08:06 | Outpatient (AMB) | payer BC, SELFPAY ==
--- NOTE | 2024-04-20 08:15 | AM.OFFWIN_ITS ---
Intake Vital Signs 04/20/24 08:16 Height 5 ft 11 in Weight 218 lb 4 oz BMI 30.4 BP 122/68 Blood Pressure Location Lt brachial Position Sitting Pulse 73 Pulse Source Pulse Oximeter Temp 97.2 F Temp Source Temporal Artery Scan Pulse Oximetry (%) 98 Oxygen Delivery Method Room Air Intake Visit Reasons: EST/fatigue and headaches(lobby) Intake Note: pt is here today for fatigue and headache started 3 months Patient Tobacco Use Status: Never used Tobacco Allergies No Known Allergies Allergy (Verified 04/20/24 08:21) Do you need a note to return to daycare/school/sports/work: Yes HPI HPI Comments History of Present Illness Details 43 y/o male patient who presents to walk in clinic with c/o Fatigue, Nausea and headaches for 1-2 years. Reports waking up everyday with nausea and feeling very tired. Pt was seen here at [facility] back in Dec 2023 for similar concerns. Lab work was ordered WNL. He was though found to have elevated Testosterone and CK levels. Pt does admit to taking Creatinine supp OTC. Pt frustrated that he has to wait until May to see PCP. [facility] Medical History Anal discharge Annual visit for general adult medical examination with abnormal findings Muscle ache of extremity Diverticulosis Tubular adenoma of colon Irregular bowel habits History of Helicobacter pylori infection Hypogonadism in male ADD (attention deficit disorder) Chronic GERD Chronic fatigue Surgical History History of hemorrhoidectomy (03/13/23) Hemorrhoids History of esophagogastroduodenoscopy (EGD) Hx of colonoscopy Hx of left inguinal hernia repair Hx of appendectomy Social History Housing: House Alcohol intake: current Alcohol intake frequency: a few times a week Alcohol type: hard liquor Patient Tobacco Use Status: Never used Tobacco e-Cigarette/Vaping Use: Never Used Second Hand Smoke Exposure: No Current occupational status: other Current occupation: self employed Cognitive needs: No Hearing needs: No Vision needs: No Review of Systems Const All systems reviewed & are unremarkable except as noted in HPI and below Physical Exam Vital Signs: Last Vital Signs Temp 97.2 F 04/20/24 08:16 Pulse 73 04/20/24 08:16 BP 122/68 04/20/24 08:16 Pulse Ox 98 04/20/24 08:16 Oxygen Delivery Method Room Air 04/20/24 08:16 BMI result Body Mass Index 30.4 Const General: comfortable and no acute distress Orientation/consciousness: patient oriented x3 Resp Effort & Inspection: normal respiratory effort and able to speak in complete sentences Auscultation: clear to auscultation bilaterally, no crackles, no rales, no rhonchi and no wheezes Cardio Rate: regular rate Rhythm: regular rhythm Neuro General: patient oriented x3, gait normal and moves all extremities Psych Speech and movement: Normal speech and movement present Assessment & Plan Assessment & Plan (1) Fatigue: Code(s): R53.83 - Other fatigue Qualifiers: Fatigue type: chronic, unspecified Qualified Code(s): R53.82 - Chronic fatigue, unspecified Plan: - Pt has an upcoming Appointment with PCP next week. (2) Nausea & vomiting: Code(s): R11.2 - Nausea with vomiting, unspecified Qualifiers: Vomiting type: unspecified Qualified Code(s): R11.2 - Nausea with vomiting, unspecified Plan: - Zofran as directed - Lifestyle changes. Medications: New ondansetron 8 mg PO Q8H 30 tabs 0RF R11.2 - Nausea with vomiting, unspecified Discontinued sulfamethoxazole-trimethoprim 800-160 mg Discontinued Reason: Patient Completed Course 1 tab PO BID 7 days 14 tabs 0RF L73.9 - Follicular disorder, unspecified Coding Level of Care Code Est Pt Level 3 (01754) Diagnoses Chronic fatigue R53.82 Fatigue type: chronic, unspecified Nausea and vomiting, unspecified vomiting type R11.2 Vomiting type: unspecified Time Spent (min) 15
[2024-04-20 08:16] VITALS: BP 122/68; PULSE 73; TEMP 36.2; O2SAT 98; BMI 30.4
== END 2024-04-20 09:19 | disposition home or self-care (01) ==
PROVIDERS: PCP Internal Medicine; Visit Provider Nurse Practitioner Family
DX: R53.82 Chronic fatigue, unspecified (principal); R11.2 Nausea with vomiting, unspecified
CPT/HCPCS: 99213

== ENCOUNTER 2024-04-26 13:49 | Outpatient (AMB) | payer BC, SELFPAY ==
--- NOTE | 2024-04-26 13:50 | A.OFFPC_ITS ---
Vital Signs 04/26/24 13:53 Height 5 ft 11 in Weight 217 lb BMI 30.3 BP 132/82 Blood Pressure Location Rt brachial Position Sitting Pulse 68 Pulse Source Pulse Oximeter Pulse Oximetry (%) 97 Oxygen Delivery Method Room Air Intake Visit Reasons: f/u walkin fatigue Intake Note: pt is here today for walk-in f/u for fatigue Allergies No Known Allergies Allergy (Verified 04/27/24 03:06) Medication List - Last Reconciled 04/27/24 by Winsome Ruano MD alprazolam 0.5 mg PO DAILY PRN anastrozole 1 mg PO USEASDIRECTD cabergoline 0.25 mg PO ONCE clonazepam 1 mg PO BID PRN dextroamphetamine sulfate 10 mg PO DAILY famotidine (Pepcid) 20 mg PO BEDTIME omeprazole 20 mg PO DAILY ondansetron 8 mg PO Q8H polyethylene glycol 3350 17 grams PO .every other day psyllium husk grams PO testosterone cypionate 50 mg IM Q2W Tobacco use date assessed: 04/26/24 Dental Screening Dental Screen Date: 04/26/24 Did you have a dental visit in the last 12 months?: Yes Did you have a dental problem in the last 6 months where you did not have access to dental care?: No Was dental information given to patient?: Patient has dentist HPI f/u walkin fatigue HPI Details 43-year-old male here today complaining persistent fatigue, present now for the last 4 months. He states that symptoms would come and go there are days that he feels well and would have days that he feels too tired to get out of bed. Has history of hypogonadism currently on testosterone replacement, with elevated testosterone level on last check , currently being followed by Urology. Has chronic GERD, currently on famotidine and omeprazole. Complains of lower abdominal pain, more so on the left side had a colonoscopy done last year which showed presence of sigmoid diverticulosis and tubular adenoma which was removed he denies any blood in the stool, no alteration in bowel habits. Last labs done in 01/12/2024 showed normal CBC, electrolytes renal function, lipids, fasting glucose, but total CK was elevated. He does take an occasional creatinine supplement . [facility] Medical History (Updated 04/27/24 @ 03:14 by Winsome Ruano MD) Muscle ache of extremity Diverticulosis Tubular adenoma of colon Irregular bowel habits History of Helicobacter pylori infection Hypogonadism in male ADD (attention deficit disorder) Chronic GERD Chronic fatigue Surgical History History of hemorrhoidectomy (03/13/23) Hemorrhoids History of esophagogastroduodenoscopy (EGD) Hx of colonoscopy Hx of left inguinal hernia repair Hx of appendectomy Social History Housing: House Alcohol intake: current Alcohol intake frequency: a few times a week Alcohol type: hard liquor Patient Tobacco Use Status: Never used Tobacco e-Cigarette/Vaping Use: Never Used Second Hand Smoke Exposure: No Current occupational status: other Current occupation: self employed Cognitive needs: No Hearing needs: No Vision needs: No Questionnaire PHQ-9 Over the last 2 weeks, how often have you been bothered by any of the following problems? 1. Little interest or pleasure in doing things: several days 2. Feeling down, depressed, or hopeless: not at all 3. Trouble falling or staying asleep, or sleeping too much: several days 4. Feeling tired or having little energy: more than half the days 5. Poor appetite or overeating: several days 6. Feeling bad about yourself - or that you are a failure or have let yourself or your family down: not at all 7. Trouble concentrating on things, such as reading the newspaper or watching television: several days 8. Moving or speaking so slowly that other people could have noticed. Or the opposite - being so fidgety or restless that you have been moving around a lot more than usual: not at all 9. Thoughts that you would be better off or of hurting yourself in some way: not at all Total score: 6 Depression Screening Interpretation: Negative Depression Screening Done: Yes 95938 - PHQ-9 Billing: Yes Source: Developed by Drs. Khanh Arias, Heaven Haile, Jareth Myers and colleagues, with an educational lorraine from [employer]. Thrive Questionnaire Date Thrive assessed: 04/26/24 I am a: Patient What is your living situation today?: I have a steady place to live Within the past 12 months, did the food you bought not last and you didn't have the money to get more?: Never true Within the past 12 months, did you worry whether your food would run out before you got money to buy more?: Never true Do you have trouble paying for medicines?: No Do you have trouble getting transportation to medical appointments?: No Do you have trouble paying your heating and electricity bill?: No Do you have trouble taking care of your child, family member or friend?: No Do you have trouble with day-to-day activities such as bathing, preparing meals, shopping, managing finances, etc.?: No Are you currently unemployed and looking for a job?: No Are you interested in more education?: No Please select the resources that you would like help with: None Currently or been in a relationship where the following occur: no concerns reported THRIVE Score: 0 AUDIT C Alcohol Use Questionnaire (AUDIT-C) 1. How often do you have a drink containing alcohol?: 2-4 times a month 2. How many drinks containing alcohol do you have on a typical day when you are drinking?: 1 or 2 3. How often do you have six or more drinks on one occasion?: Never Total Score: 2 Score Reviewed/Action Taken: Yes KEYONNA-7 AMB Questionnaire KEYONNA-7 Date KEYONNA - 7 assessed: 04/26/24 Feeling nervous, anxious, or on edge: 1 = Several days Not being able to stop or control worryin = Not at all Worrying too much about different things: 1 = Several days Trouble relaxin = Several days Being so restless that it is hard to sit still: 0 = Not at all Becoming easily annoyed or irritable: 1 = Several days Feeling afraid as if something awful might happen: 0 = Not at all Total KEYONNA-7 score (0-4 normal; 5-9 mild; 10-14 moderate; 15-21 severe): 4 Source: Developed by Drs. Khanh Arias, Heaven Haile, Jareth Myers and colleagues, with an educational lorraine from [employer]. KEYONNA-7 Assessment Billing KEYONNA-7 Assessment Tool: KEYONNA-7 Assessment 94204 Review of Systems Const Denies fever(s), Denies headache(s) and Denies weakness Eyes Denies change in vision ENT Denies dizziness, Denies headache(s) and Denies nasal congestion Card Denies chest pain, Denies lightheadedness, Denies palpitations and Denies dyspnea Resp Denies chest congestion, Denies cough and Denies dyspnea GI Reports as per HPI Denies hematuria, Denies difficulty urinating, Denies dysuria, Denies urinary frequency and Denies urinary urgency Musc Reports no additional complaints Neuro Denies dizziness, Denies headache(s) and Denies weakness Psych Reports no additional complaints Endo Denies polydipsia, Denies polyuria and Denies palpitations Aller/Immun Denies seasonal rhinorrhea Physical exam (Primary Care) Vital Signs: Last Vital Signs Pulse 68 04/26/24 13:53 BP 132/82 04/26/24 13:53 Pulse Ox 97 04/26/24 13:53 Oxygen Delivery Method Room Air 04/26/24 13:53 BMI result Body Mass Index 30.3 Tobacco/Smoking Status: Tobacco use Status Tobacco use date assessed 04/26/24 04/26/24 14:01 Patient Tobacco Use Status Never used Tobacco 04/26/24 13:51 e-Cigarette/Vaping Use Never Used 04/26/24 13:51 PHQ-9: PHQ-9 Score PHQ-9: Total score 8 04/26/24 14:31 Depression Screening Interpretation: Negative Thrive Assessment: Date of Thrive Assessment Date Thrive assessed 04/26/24 04/26/24 14:01 Currently or been in a relationship where the following occur: no concerns reported Const Other: Alert oriented x3, no acute cardiorespiratory distress Orientation/consciousness: patient oriented x3 HENPA Head: Yes normocephalic General nose exam: Normal external nose present Face and sinus: Yes face symmetric Mouth: Normal oral and palatal mucosa present, oropharynx normal and moist mucous membranes Eyes General: appearance normal, both eyes and all related structures Neck Neck: Yes full ROM, Yes no lymphadenopathy and Yes supple Thyroid: Thyroid normal Resp Auscultation: clear to auscultation bilaterally Cardio Other: S1-S2 present regular rate and rhythm GI Other: Normal bowel sounds, soft, slightly tender to palpation over lower abdominal area more so on the left lower quadrant, with no mass, no rebound or guarding General: Yes no CVA tenderness Back/Spine/Pelvis Back: no CVA tenderness and No back tenderness Neuro General: patient oriented x3, gait normal, moves all extremities, Normal light touch and pain sensation, no focal motor deficits and CN's II-XI intact bilaterally Extrem General: Yes full ROM, Yes no joint enlargement, Yes no clubbing, cyanosis or edema, Yes no calf tenderness and Yes normal gait Psych Appearance: grossly normal and well kempt Mental Status: mental status grossly normal Speech and movement: Normal speech and movement present Affect: normal affect Assessment and Plan Assessment & Plan (1) Chronic fatigue: Code(s): R53.82 - Chronic fatigue, unspecified Plan: Ordered CBC, vitamin-D level, TSH with free T4, Lyme titer and comprehensive metabolic panel. (2) Chronic GERD: Comment: EGD done by Dr. Hernandez 02/16/2023 Code(s): K21.9 - Gastro-esophageal reflux disease without esophagitis Plan: Continued on famotidine and omeprazole, followed by GI, avoidance of triggers, avoidance of late night snacking (3) Lower abdominal pain of unknown etiology: Code(s): R10.30 - Lower abdominal pain, unspecified Plan: CT of abdomen/pelvis with IV contrast ordered together with CBC Orders: Orders Creatine Kinase Total 04/26/24 K21.9 - Gastro-esophageal reflux disease without esophagitis, K64.9 - Unspecified hemorrhoids, R53.82 - Chronic fatigue, unspecified, R53.83 - Other fatigue Vitamin D 25-OH Total 04/26/24 K21.9 - Gastro-esophageal reflux disease without esophagitis, K64.9 - Unspecified hemorrhoids, R53.82 - Chronic fatigue, unspecified, R53.83 - Other fatigue TSH reflex Free T4 04/26/24 K21.9 - Gastro-esophageal reflux disease without esophagitis, K64.9 - Unspecified hemorrhoids, R53.82 - Chronic fatigue, unspecified, R53.83 - Other fatigue Lyme IgG/IgM w/reflex to WB 04/26/24 R53.83 - Other fatigue Complete Blood Count Auto Diff 04/26/24 K21.9 - Gastro-esophageal reflux disease without esophagitis, K64.9 - Unspecified hemorrhoids, R53.82 - Chronic fatigue, unspecified, R53.83 - Other fatigue Comprehensive [place]. Panel Fast 04/26/24 K21.9 - Gastro-esophageal reflux disease without esophagitis, K64.9 - Unspecified hemorrhoids, R53.82 - Chronic fatigue, unspecified, R53.83 - Other fatigue CT abdomen pelvis w IV con 04/26/24 R10.30 - Lower abdominal pain, unspecified Coding Level of Care Code Est Pt Level 4 (56529) Diagnoses Chronic fatigue R53.82 Chronic GERD K21.9 Lower abdominal pain of unknown etiology R10.30 Additional Codes KEYONNA-7 Assessment Billing - KEYONNA-7 Assessment Tool: KEYONNA-7 Assessment 92801 ([id number])
[2024-04-26 13:53] VITALS: BP 132/82; PULSE 68; O2SAT 97; BMI 30.3
== END 2024-04-26 15:04 | disposition home or self-care (01) ==
PROVIDERS: PCP Internal Medicine; Visit Provider Internal Medicine
DX: R53.82 Chronic fatigue, unspecified (principal); K21.9 Gastro-esophageal reflux disease without esophagitis; R10.30 Lower abdominal pain, unspecified
CPT/HCPCS: 99214

== ENCOUNTER 2024-04-27 06:29 | Outpatient (REF) | payer BC, SELFPAY ==
[2024-04-27 10:40] LABS: MANUAL DIFF FLAG NO
[2024-04-27 10:46] LABS: Basophils Absolute Auto 0.1 X10*3/uL (0.0-0.2); Basophils Percent Auto 0.9 % (0-2); Eosinophils Absolute Auto 0.2 X10*3/uL (0.0-0.4); Eosinophils Percent Auto 2.6 % (0-4); Hemoglobin 16.2 g/dl (14.0-18.0); Imm Gran Abs Auto 0.09 X10*3/uL (0.00-0.03); Imm Gran Pct Auto 1.4 % (0.0-0.4); Lymphocytes Absolute Auto 1.9 X10*3/uL (1.2-4.9); Lymphocytes Percent Auto 28.9 % (20-40); Mean Corpuscular HGB Conc 33.1 g/dl (31.0-36.0); Mean Corpuscular Hemoglobin 30.7 pg (27.0-33.0); Mean Platelet Volume 10.1 fL (9.4-12.4); Monocytes Absolute Auto 0.6 X10*3/uL (0.1-1.2); Monocytes Percent Auto 8.7 % (2-11); Neutrophils Absolute Auto 3.8 x10*3/uL (2.0-8.3); Neutrophils Percent Auto 57.5 % (45-73); Platelet Count 243 X10*3/uL (160-400); Red Blood Count 5.27 X10*6/uL (4.60-5.80); Red Cell Distribution Width 12.1 % (11.0-16.0); White Blood Count 6.6 X10*3/uL (4.8-10.8)
[2024-04-27 11:14] LABS: Alanine Aminotransferase 18 U/L (0-40); Alkaline Phosphatase 53 U/L (39-117); Anion Gap 11 (12-20); Aspartate Amino Transferase 21 U/L (5-37); Bilirubin Total 1.2 mg/dL (0.0-1.0); Blood Urea Nitrogen 11 mg/dL (9-16); Calcium 9.1 mg/dL (8.4-10.2); Carbon Dioxide 28 mmol/L (22-29); Chloride 107 mmol/L (96-108); Estimated Glomerular Filt Rate > 60; Glucose Fasting 103 mg/dL (60-99); Potassium 3.8 mmol/L (3.3-5.1); Sodium 142 mmol/L (135-145); Total Protein 6.5 g/dL (6.5-8.0)
[2024-04-27 11:21] LABS: TSH reflex Free T4 1.12 uIU/mL (0.32-4.0); Vitamin D 25-OH Total 58.3 ng/mL (>30)
[2024-04-28 19:02] LABS: Lyme Abs Screen <0.90 index
== END 2024-04-27 06:30 | disposition home or self-care (01) ==
LOC: HO.HMGCLDS 06:29
PROVIDERS: PCP Internal Medicine; Visit Provider Internal Medicine
DX: K64.9 Unspecified hemorrhoids (principal); R53.83 Other fatigue; K21.9 Gastro-esophageal reflux disease without esophagitis; R53.82 Chronic fatigue, unspecified
CPT/HCPCS: 36415; 80053; 82306; 82550; 84443; 85025; 86617; 86618

== ENCOUNTER 2024-05-31 12:51 | Outpatient (AMB) | payer BC, SELFPAY ==
[2024-05-31 12:55] VITALS: BP 120/68; PULSE 73; O2SAT 97; BMI 30.1
--- NOTE | 2024-05-31 12:55 | A.OFFPC_ITS ---
Vital Signs 05/31/24 12:55 Height 5 ft 11 in Weight 216 lb BMI 30.1 BP 120/68 Blood Pressure Location Rt brachial Position Sitting Pulse 73 Pulse Source Pulse Oximeter Pulse Oximetry (%) 97 Oxygen Delivery Method Room Air Intake Visit Reasons: Headaches/nauseas/energy issues Intake Note: Pt is here today c/o H/A, nausea and fatigue Allergies No Known Allergies Allergy (Verified 05/31/24 13:05) Medication List - Last Reconciled 05/31/24 by Winsome Ruano MD alprazolam 0.5 mg PO DAILY PRN anastrozole 1 mg PO USEASDIRECTD cabergoline 0.25 mg PO ONCE clonazepam 1 mg PO BID PRN dextroamphetamine sulfate 10 mg PO DAILY famotidine (Pepcid) 20 mg PO BEDTIME omeprazole 20 mg PO DAILY ondansetron 8 mg PO Q8H polyethylene glycol 3350 17 grams PO .every other day psyllium husk grams PO testosterone cypionate 50 mg IM Q2W Tobacco use date assessed: 05/31/24 Dental Screening Dental Screen Date: 05/31/24 Did you have a dental visit in the last 12 months?: Yes Did you have a dental problem in the last 6 months where you did not have access to dental care?: No Was dental information given to patient?: Patient has dentist HPI Headaches/nauseas/energy issues HPI Details 43-year-old male, here today for follow- up. Still having easy fatigability, no energy, has been having intermittent episodes of headaches and abdominal pain. He has history of hypogonadism currently followed by Clinic in [place], gets testosterone injections patient states that his last testosterone level was within normal limits. He had recent fasting labs done, which showed CBC, comprehensive metabolic panel, TSH and vitamin-D level all within normal limits except for slightly elevated fasting glucose at 103 mg/dL. Lyme titer also came back negative [facility]LY [facility] Medical History (Updated 05/31/24 @ 13:22 by Winsome Ruano MD) Fatigue Muscle ache of extremity Diverticulosis Tubular adenoma of colon Irregular bowel habits History of Helicobacter pylori infection Hypogonadism in male ADD (attention deficit disorder) Chronic GERD Chronic fatigue Surgical History History of hemorrhoidectomy (03/13/23) Hemorrhoids History of esophagogastroduodenoscopy (EGD) Hx of colonoscopy Hx of left inguinal hernia repair Hx of appendectomy Social History Housing: House Alcohol intake: current Alcohol intake frequency: a few times a week Alcohol type: hard liquor Patient Tobacco Use Status: Never used Tobacco e-Cigarette/Vaping Use: Never Used Second Hand Smoke Exposure: No Current occupational status: other Current occupation: self employed Cognitive needs: No Hearing needs: No Vision needs: No Questionnaire Thrive Questionnaire Date Thrive assessed: 04/26/24 KEYONNA-7 AMB Questionnaire KEYONNA-7 Date KEYONNA - 7 assessed: 04/26/24 Source: Developed by Drs. Khanh Arias, Heaven Haile, Jareth Myers and colleagues, with an educational lorraine from [employer]. Review of Systems Const Denies fever(s), Denies headache(s) and Denies weakness Eyes Denies change in vision ENT Denies dizziness, Denies headache(s) and Denies nasal congestion Card Denies chest pain, Denies lightheadedness, Denies palpitations and Denies dyspnea Resp Denies chest congestion, Denies cough and Denies dyspnea GI Reports as per HPI Denies hematuria, Denies difficulty urinating, Denies dysuria, Denies urinary frequency and Denies urinary urgency Musc Reports no additional complaints Neuro Denies dizziness, Denies headache(s) and Denies weakness Psych Reports no additional complaints Endo Denies polydipsia, Denies polyuria and Denies palpitations Celestino/Lymph Reports no additional complaints Aller/Immun Denies seasonal rhinorrhea Physical exam (Primary Care) Vital Signs: Last Vital Signs Pulse 73 05/31/24 12:55 BP 120/68 05/31/24 12:55 Pulse Ox 97 05/31/24 12:55 Oxygen Delivery Method Room Air 05/31/24 12:55 BMI result Body Mass Index 30.1 Tobacco/Smoking Status: Tobacco use Status Tobacco use date assessed 05/31/24 05/31/24 12:57 Patient Tobacco Use Status Never used Tobacco 05/31/24 12:57 e-Cigarette/Vaping Use Never Used 05/31/24 12:57 Thrive Assessment: Date of Thrive Assessment Date Thrive assessed 04/26/24 05/31/24 12:57 Const Other: Alert oriented x3, no acute cardiorespiratory distress Orientation/consciousness: patient oriented x3 HENNV Head: Yes normocephalic Face and sinus: Yes face symmetric Mouth: Normal oral and palatal mucosa present, oropharynx normal and moist mucous membranes Neck Neck: Yes full ROM, Yes no lymphadenopathy and Yes supple Thyroid: Thyroid normal Resp Auscultation: clear to auscultation bilaterally Cardio Other: S1-S2 present regular rate and rhythm GI Other: Normal bowel sounds, soft, slightly tender to palpation over lower abdominal area more so on the left lower quadrant, with no mass, no rebound or guarding General: Yes no CVA tenderness Back/Spine/Pelvis Back: no CVA tenderness and No back tenderness Neuro General: patient oriented x3, gait normal, moves all extremities, Normal light touch and pain sensation, no focal motor deficits and CN's II-XI intact bilaterally Extrem General: Yes full ROM, Yes no joint enlargement, Yes no clubbing, cyanosis or edema, Yes no calf tenderness and Yes normal gait Psych Appearance: grossly normal and well kempt Mental Status: mental status grossly normal Speech and movement: Normal speech and movement present Affect: normal affect Results Reviewed Results Reviewed: Name: Ted Murguia Age/Sex: 43/M : 1980 Unit#: [id number] Attend Dr: Winsome Ruano MD Re04/27/24 Status: DEP REF Location: [facility] Disch: SPEC : [id number] JACQUELYN: 04/27/24 STATUS: COMP REQ : [id number] RECD: 04/27/24-[address]: Winsome Ruano MD COMP: 04/27/24 ENTERED: 04/27/24 [facility] DR: ORDERED: CBC Auto Diff Test Result Flag Reference WBC 6.6 4.8-10.8 X10*3/uL RBC 5.27 4.60-5.80 X10*6/uL HGB 16.2 14.0-18.0 g/dl HCT 49.0 42.0-52.0 % MCV 93.0 80.0-98.0 fL MCH 30.7 27.0-33.0 pg MCHC 33.1 31.0-36.0 g/dl RDW 12.1 11.0-16.0 % PLT 243 160-400 X10*3/uL MPV 10.1 9.4-12.4 fL Neut Pct Auto 57.5 45-73 % ImGran Pct Auto 1.4 H 0.0-0.4 % Lymp Pct Auto 28.9 20-40 % Vermillion Pct Auto 8.7 2-11 % Eos Pct Auto 2.6 0-4 % Baso Pct Auto 0.9 0-2 % NRBC Pct Auto 0.0 0.0-0.2 /100WBC ANC Neut Abs # 3.8 2.0-8.3 x10*3/uL ImGran Abs Auto 0.09 H 0.00-0.03 X10*3/uL Lymph Abs Auto 1.9 1.2-4.9 X10*3/uL Vermillion Abs Auto 0.6 0.1-1.2 X10*3/uL Eos Abs Auto 0.2 0.0-0.4 X10*3/uL Baso Abs Auto 0.1 0.0-0.2 X10*3/uL NRBC Abs Auto 0.000 0.0-0.012 X10*3/uL Name: Ted Murguia Age/Sex: 43/M : 1980 Unit#: [id number] Attend Dr: Winsome Ruano MD Re04/27/24 Status: DEP REF Location: [facility] Disch: SPEC : [id number] JACQUELYN: 04/27/24 STATUS: COMP REQ : [id number] RECD: 04/27/24-[address] [facility] [address]: Winsome Ruano MD COMP: 04/27/241 ENTERED: 04/27/[address]: ORDERED: CMP Fast, CK Total, Vitamin D 25-OH, TSH Rflx Test Result Flag Reference Sodium 142 135-145 mmol/L Potassium 3.8 3.3-5.1 mmol/L CL 107 96-108 mmol/L CO2 28 22-29 mmol/L Gap 11 L 12-20 BUN 11 9-16 mg/dL Creat 0.90 0.5-1.4 mg/dL EGFR > 60 NOTE: For -Malaysian individuals, multiply the result by 1.210. Chronic Kidney Disease: Estimated GFR < 60 mL/min/1.73m2 Severe Kidney Disease: Estimated GFR < 15 mL/min/1.73m2 FBS 103 H 60-99 mg/dL A fasting glucose from 100-125 mg/dl is considered impaired (pre-diabetes). CA 9.1 8.4-10.2 mg/dL Total Bili 1.2 H 0.0-1.0 mg/dL AST (GOT) 21 5-37 U/L ALT (GPT) 18 0-40 U/L CK Total 224 H 38-174 U/L Protein, Total 6.5 6.5-8.0 g/dL Alb 4.0 3.5-5.0 g/dL Alk Phos 53 39-117 U/L Vit D 25-OH Tot 58.3 >30 ng/mL Health Based Reference Values* < 20 ng/mL Deficient 20-30 ng/mL Insufficient > 30 ng/mL Sufficient *Shalini HILTON. N Engl J Med. 2007;357:266-280 Care must be taken in interpreting Vitamin D results from different laboratories and methodologies. Published data demonstrated that results from patients undergoing hemodialysis may show a negative bias when tested with various automated 25-OH vitamin D assays when compared to LC-MS/MS. When testing samples from patients whose predominant form of Vitamin D is Vitamin D2, such as patients receiving Vitamin D2 supplementation, results that are subtherapeutic should be confirmed with another method such as LC-MS/MS. TSH 1.12 0.32-4.0 uIU/mL Assessment and Plan Assessment & Plan (1) Hypogonadism in male: Comment: ff'd at [facility] , Dr Gurpreet Ramirez in [place], [place] Code(s): E29.1 - Testicular hypofunction Plan: Will check another free and total testosterone level (2) Fatigue: Code(s): R53.83 - Other fatigue Plan: Ordered testosterone level, rest of his labs all came back within normal limits (3) Abdominal pain: Code(s): R10.9 - Unspecified abdominal pain Plan: Will check total CK, repeat liver panel and free and total testosterone level Orders: Orders Liver Panel 05/31/24 E29.1 - Testicular hypofunction, R10.9 - Unspecified ab dominal pain, R53.83 - Other fatigue Creatine Kinase Total 05/31/24 E29.1 - Testicular hypofunction, R10.9 - Unspecified abdominal pain, R53.83 - Other fatigue Testosterone, Free/Total 05/31/24 E29.1 - Testicular hypofunction, R10.9 - Unspecified abdominal pain, R53.83 - Other fatigue Coding Level of Care Code Est Pt Level 4 (63981) Diagnoses Hypogonadism in male E29.1 Fatigue R53.83 Abdominal pain R10.9
== END 2024-05-31 13:27 | disposition home or self-care (01) ==
PROVIDERS: PCP Internal Medicine; Visit Provider Internal Medicine
DX: E29.1 Testicular hypofunction (principal); R53.83 Other fatigue; R10.9 Unspecified abdominal pain
CPT/HCPCS: 99214

== ENCOUNTER 2024-06-24 08:26 | Outpatient (REF) | payer BC, SELFPAY ==
--- NOTE | ~2024-06-24 | CT_ITS ---
EXAMINATION: CT ABDOMEN AND PELVIS WITH CONTRAST CLINICAL INFORMATION: Lower abdominal pain COMPARISON: None available. TECHNIQUE: Multidetector volumetric images were obtained from the superior aspect of the liver through the pubic symphysis following administration 85 mL of Omnipaque 350 intravenous contrast. Sagittal and coronal reformatted images were obtained on the technologist's workstation. Oral contrast: No This CT examination was performed using dose optimization techniques as appropriate, variously including the following: *Automated exposure control *Adjustment of mA and/or kV according to patient size (this includes techniques or standardized protocols for targeted exams where dose is matched to indication/reason for exam; i.e. extremities or head) *Use of iterative reconstruction technique DLP: 505 mGy-cm FINDINGS: LUNG BASES: Bilateral lung bases are clear. LIVER: No focal lesion is seen in the liver. GALLBLADDER AND BILIARY TREE: Gallbladder appears unremarkable without calcified stones. Common bile duct is not dilated. SPLEEN: The spleen is normal in size without focal lesion. PANCREAS: The pancreas appears unremarkable. ADRENAL GLANDS: Adrenal glands are normal in size without focal lesion bilaterally. KIDNEYS: Bilateral kidneys are normal in size without focal lesion. BOWELS: There is mild fecal distention of the ascending colon. RETROPERITONEUM: No abnormally enlarged retroperitoneal lymph nodes, mass or hematoma could be seen. BLOOD VESSELS: Abdominal aorta is normal in size and smoothly patent. ABDOMINAL WALL: Small umbilical hernia containing mesenteric fat is seen. PERITONEUM: There was no ascites. There were no abdominal peritoneal inflammatory changes seen. No free peritoneal air was seen. No abnormally enlarged mesenteric lymph nodes are found. BONES: A prominent Schmorl's node with sclerotic border is seen extending from inferior L4 vertebral endplate deep into the upper vertebral body. No fracture or dislocation. No focal bone lesion diagnostic of metastatic disease could be seen in the lumbar region. EXAMINATION: CT pelvis. FINDINGS: URINARY BLADDER: Urinary bladder fills normally with urine. BOWELS: There is mild fecal distention of the cecum. Appendix cannot be identified. GENITAL ORGANS: Seminal vesicles are unremarkable. Prostate gland is normal. LYMPH NODES: No abnormally enlarged iliac or inguinal lymph nodes are seen. PERITONEUM: No inflammatory changes, ascites or free peritoneal air are found in the pelvis. BONES: No fracture or dislocation. No focal bone lesion diagnostic of metastatic disease could be seen in the pelvis. CT/CT abdomen pelvis w IV con IMPRESSION: 1. Mild fecal distention of the ascending colon and cecum. 2. No intestinal or colonic obstruction or abdominal inflammation or pneumoperitoneum is seen. 3. No abdominal mass lesion or lymphadenopathy is found. 4. No pelvic mass lesion, abscess or lymphadenopathy is seen. Fleischner guidelines were followed.
[2024-06-24] MEDS: iohexoL 350 MG/ML 100 ML INFUS..BTL 85 ML IV (08:59)
== END 2024-06-24 08:27 | disposition home or self-care (01) ==
LOC: HO.CT 08:26
PROVIDERS: PCP Internal Medicine; Visit Provider Internal Medicine
DX: R10.30 Lower abdominal pain, unspecified (principal)
CPT/HCPCS: 74177; Q9967

== ENCOUNTER 2025-02-21 15:27 | Outpatient (AMB) | payer OTHER, SELFPAY ==
--- NOTE | 2025-02-21 16:24 | AM.OFFWIN_ITS ---
Intake Vital Signs 02/21/25 16:25 Weight 229 lb 2 oz BP 136/80 Blood Pressure Location Rt brachial Position Sitting Pulse 78 Pulse Source Pulse Oximeter Temp 98.8 F Temp Source Oral Pulse Oximetry (%) 97 Oxygen Delivery Method Room Air Intake Visit Reasons: EP cold, dry cough, migraine, ear pain, BP Intake Note: Patient here for sry cough, migraines, right ear pain and fatigue that has been present for almost 1 week. Patient Tobacco Use Status: Never used Tobacco Allergies No Known Allergies Allergy (Verified 02/21/25 16:25) Do you need a note to return to daycare/school/sports/work: Yes HPI HPI Comments History of Present Illness Details This is a 44-year-old male with a past medical history of appendectomy only presenting for evaluation of a cough, general malaise any headache that started last Thursday. Patient states this morning he felt that his hearing in his right ear was decreased which developed pain later in the morning. Patient has been taking Advil cold and sinus without complete relief of his discomfort. Patient denies having any visual changes, neck pain, sore throat, difficulty swallowing, chest pain or overt shortness of breath. [facility] Medical History (Updated 02/21/25 @ 17:08 by Ana Crystal PA-C) Fatigue Muscle ache of extremity Diverticulosis Tubular adenoma of colon Irregular bowel habits History of Helicobacter pylori infection Hypogonadism in male ADD (attention deficit disorder) Chronic GERD Chronic fatigue Surgical History History of hemorrhoidectomy (03/13/23) Hemorrhoids History of esophagogastroduodenoscopy (EGD) Hx of colonoscopy Hx of left inguinal hernia repair Hx of appendectomy Social History Housing: House Alcohol intake: current Alcohol intake frequency: a few times a week Alcohol type: hard liquor Patient Tobacco Use Status: Never used Tobacco e-Cigarette/Vaping Use: Never Used Second Hand Smoke Exposure: No Current occupational status: other Current occupation: self employed Cognitive needs: No Hearing needs: No Vision needs: No Review of Systems Const All systems reviewed & are unremarkable except as noted in HPI and below Denies chills, Reports fatigue, Denies fever(s) and Reports lethargy Eyes Reports no additional complaints ENT Reports no additional complaints, Reports otalgia (right), Denies nasal congestion and Denies post nasal drip Card Denies chest pain and Denies dyspnea Resp Reports no additional complaints, Denies chest congestion, Reports cough, Denies hemoptysis, Denies dyspnea and Denies wheezing GI Reports no additional complaints Reports no additional complaints Musc Reports no additional complaints Skin/Breast Reports system reviewed and no additional complaints, except as documented Neuro Reports no additional complaints Psych Reports no additional complaints Endo Reports no additional complaints and Reports fatigue Celestino/Lymph Reports no additional complaints Aller/Immun Reports no additional complaints and Denies wheezing Physical Exam Vital Signs: Last Vital Signs Temp 98.8 F 02/21/25 16:25 Pulse 78 02/21/25 16:25 BP 136/80 02/21/25 16:25 Pulse Ox 97 02/21/25 16:25 Oxygen Delivery Method Room Air 02/21/25 16:25 Const General: cooperative, healthy appearing, comfortable, no acute distress, well developed, alert, awake and Physically active Nutritional Appearance: well nourished Orientation/consciousness: patient oriented x3 Limitations: no limitations HEENT Head: Yes normal to inspection and Yes normocephalic Ears: hearing grossly normal bilaterally, external ears normal, right TM abnormal (erythema, bulging, no fluid level noted), TM normal on the left and EAC's normal General nose exam: Normal external nose present and No nasal discharge present Face and sinus: Yes normal facial exam and No Facial tenderness on exam of face and sinuses Mouth: Normal oral and palatal mucosa present, oropharynx normal and moist mucous membranes Throat: Yes posterior oropharynx normal Eyes General: appearance normal, both eyes and all related structures Neck Lymphatic: no lymphadenopathy noted Resp Effort & Inspection: normal respiratory effort Auscultation: clear to auscultation bilaterally Cardio Rate: regular rate Rhythm: regular rhythm Skin General skin exam: no rashes or lesions noted Neuro General: patient oriented x3 Psych Appearance: grossly normal Mental Status: mental status grossly normal Insight: Good insight present (Psych) Judgement: Good judgement present (Psych) Assessment & Plan Assessment & Plan (1) Otitis media of right ear: Comment: Patient's examination is consistent with a right otitis media and he will be discharged home with amoxicillin. Code(s): H66.91 - Otitis media, unspecified, right ear Qualifiers: Otitis media type: unspecified Qualified Code(s): H66.91 - Otitis media, unspecified, right ear Plan: Amoxicillin 500 mg t.i.d. x7 days. Patient will also utilize Mucinex, Tylenol and Advil for his cough and headache. Medications: New amoxicillin 500 mg PO TID 21 caps 0RF Coding Level of Care Code Est Pt Level 3 (06432) Diagnoses Right otitis media, unspecified otitis media type H66.91 Otitis media type: unspecified Time Spent (min) 20
[2025-02-21 16:25] VITALS: BP 136/80; PULSE 78; TEMP 37.1; O2SAT 97
--- OUTSIDE RECORDS SUMMARY | 2025-02-21 18:22 | XMS_ITS | Data Portability ---
Author Organization [facility] [address] Address [address] [place] [address] Assessment No assessment recorded. Plan of Treatment Reminders Order Date Submit Date Provider Last Modified By Organization Details Last Modified Time Details Appointments None record ed. Lab None record ed. Referral None record ed. Procedures None record ed. Surgeries None record ed. Imaging None record ed. Medication Orders None record ed. Patient TargetsNo targets recorded. Patient InstructionsNo instructions recorded. Reason for Referral None Reported. Medical Equipment None Reported. Medications Name Sig Start Date Stop Date Status Note LastModified by Organization Details LastModified Time anastrozole 1 mg tablet TAKE 1/8 TABLET BY MOUTH 3 TIMES A WEEK active Not Available Not Available No t Available paroxetine 10 mg tablet TAKE 1/2 TABLET BY MOUTH AT BEDTIME FOR 1 WEEK THEN TAKE 1 TABLET BY MOUTH AT BEDTIME active Not Available Not Available No t Available dextroamphet amine sulfate ER 15 mg capsule,exte nded release TAKE 1 CAPSULE BY MOUTH TWICE DAILY active Not Available Not Available No t Available dextroamphet amine sulfate 10 mg tablet TAKE 1 TABLET BY MOUTH EVERY DAY active Not Available Not Available No t Available alprazolam 0.5 mg tablet TAKE 1 TABLET BY MOUTH EVERY DAY NEEDED active Not Available Not Available No t Available cabergoline 0.5 mg tablet TAKE 1/2 (ONE-HALF) TABLET BY MOUTH ONCE A WEEK active Not Available Not Available No t Available docusate sodium 100 mg capsule TAKE 1 CAPSULE BY MOUTH EVERY NIGHT AT BEDTIME active Not Available Not Available No t Available omeprazole 20 mg capsule,oli yed release TAKE 1 CAPSULE BY MOUTH DAILY active Not Available Not Available Not Available polyethylene glycol 3350 17 gram/dose oral powder TAKE DIRECTED BY GI DEPARTMENT active Not Available Not Available N ot Available Laxative (bisacodyl) 5 mg tablet TAKE 2 TABLETS BY MOUTH AT NOON THE DAY BEFORE YOUR COLONOSCOPY active Not Available Not Available Not Available tadalafil 20 mg tablet TAKE ONE TABLET BY MOUTH APPROXIMATE LY ONE HOUR BEFORE SEXUAL ACTIVITY. DO NOT USE MORE THAN ONE DOSE DAILY active Not Available Not Available No t Available cholecalcife rol (vitamin D3) 1,250 mcg (50,000 unit) capsule active Not Available Not Available Not Available Vitals None Recorded Social History None recorded. Functional Status None recorded. Mental Status None recorded. Family History Nothing Reported. Medical History No medical history recorded. Past Encounters Encounter ID Performer Location Encounter Start Date Encounter Closed Date Diagnosis/Indication Diagnosis SNOMED-CT Code Diagnosis ICD10 Code Diagnosis Note [id number] [address] [facility] [place] [address] 10/15/2020 08:29:24 10/15/2020 10:54:10 [id number] [address] [place] [address] 12/27/2018 11:53:06 12/27/2018 13:01:39 [id number] [address] [place] [address] 05/17/2020 08:02:06 05/17/2020 09:03:15 [id number] Dion Alicea NP [address] [place] [address] 11/22/2022 08:15:23 11/22/2022 09:10:22 History and physical examination, pre-employment [id number] Z02.1 Health Concerns Section Related Observation LastModified by Organization Detai ls LastModified Time None Recorded Concern Status LastModified by Organization Details LastModified Time None Recorded Advance Directives Directive None Recorded Payers Encounter Date Sequence Insurance Name Policy Number Policy Jack Covered Member ID Jack Member ID Guarantor Name 11/22/2022 FEE FOR SERVICE Ted Shantal Notes Date Note Type Note Provider Name and Address Organization Details Recorded Time 11/22/2022 text/html sport physical Dion Alicea NP [address] [place], [address], [place] - [employer] 11/22/2022 08:39:42
--- OUTSIDE RECORDS SUMMARY | 2025-02-21 18:22 | XMS_ITS ---
Author Name [facility] Organization Unknown Care Team Organization Name Specialty Phone Email Start Date End [facility]
== END 2025-02-21 16:57 | disposition home or self-care (01) ==
PROVIDERS: PCP Internal Medicine; Visit Provider Physician Assistant
DX: H66.91 Otitis media, unspecified, right ear (principal)

== ENCOUNTER 2025-02-28 10:05 | Outpatient (AMB) | payer OTHER, SELFPAY ==
--- NOTE | 2025-02-28 10:18 | MHC.OFFWIV ---
Intake Vital Signs 02/28/25 10:19 Weight 222 lb BP 130/82 Blood Pressure Location Rt brachial Position Sitting Pulse 75 Pulse Source Pulse Oximeter Temp 98.9 F Temp Source Oral Pulse Oximetry (%) 98 Oxygen Delivery Method Room Air Intake Visit Reasons: EP ear pain, headache, not working Intake Note: Patient here for right ear pain, headache and was put on antibiotics which have not helped. Patient Tobacco Use Status: Never used Tobacco Allergies No Known Allergies Allergy (Verified 02/21/25 16:25) Do you need a note to return to daycare/school/sports/work: Yes HPI HPI Comments History of Present Illness Details History - The patient is a 44-year-old male presenting with an inability to hear from the right ear. - The patient was previously treated with a one-week course of Amoxicillin for an inner ear infection. - Symptoms include ear pain, sinus pain and headache without fever. - History of cerumen impaction, uses debrox drops - No use of nasal sprays reported. Physical Exam General: Cooperative, healthy appearing, comfortable and no acute distress Orientation/consciousness: Patient oriented x3 Limitations: No limitations Head: Normal to inspection Ears: external ears normal, TM's with cerumen bilaterally Nose: Normal external nose present, Normal nares present and No nasal discharge present Face and sinus: Normal facial exam Eyes: Appearance normal, both eyes and all related structures Neck: Normal visual inspection Respiratory: Normal respiratory effort, able to speak in complete sentences, no respiratory distress, not tachypneic, no tripod positioning and no use of accessory muscles Skin: No rashes or lesions noted Neuro: Patient oriented x3 Extremities: Normal to inspection and Yes no clubbing, cyanosis or edema [facility] Medical History (Updated 02/28/25 @ 11:01 by Felicita Foley PA-C) Fatigue Muscle ache of extremity Diverticulosis Tubular adenoma of colon Irregular bowel habits History of Helicobacter pylori infection Hypogonadism in male ADD (attention deficit disorder) Chronic GERD Chronic fatigue Surgical History History of hemorrhoidectomy (03/13/23) Hemorrhoids History of esophagogastroduodenoscopy (EGD) Hx of colonoscopy Hx of left inguinal hernia repair Hx of appendectomy Social History Housing: House Alcohol intake: current Alcohol intake frequency: a few times a week Alcohol type: hard liquor Patient Tobacco Use Status: Never used Tobacco e-Cigarette/Vaping Use: Never Used Second Hand Smoke Exposure: No Current occupational status: other Current occupation: self employed Cognitive needs: No Hearing needs: No Vision needs: No Review of Systems Const All systems reviewed & are unremarkable except as noted in HPI and below Physical Exam Vital Signs: Last Vital Signs Temp 98.9 F 02/28/25 10:19 Pulse 75 02/28/25 10:19 BP 130/82 02/28/25 10:19 Pulse Ox 98 02/28/25 10:19 Oxygen Delivery Method Room Air 02/28/25 10:19 Office Procedures Cerumen Removal From which ear canal was the cerumen removed: bilateral Removal: irrigation Notes: patient tolerated procedure well, no complications and ear canal clear 63030-Siu Irrigation/Lavage Assessment & Plan Assessment & Plan (1) Hearing reduced: Code(s): H91.90 - Unspecified hearing loss, unspecified ear Qualifiers: Laterality: right Qualified Code(s): H91.91 - Unspecified hearing loss, right ear Plan: Cerumen removed in hearing improved in the left ear but not completely in the right ear. (2) Otitis externa: Code(s): H60.90 - Unspecified otitis externa, unspecified ear Qualifiers: Otitis externa type: diffuse Chronicity: acute Laterality: right Qualified Code(s): H60.311 - Diffuse otitis externa, right ear Plan: Able to clear cerumen out of both ears, after this procedure, the right ear external ear canal had some erythema and edema which we will treat as a otitis externa. Also recommended patient use Flonase twice a day and explained proper procedure to use the Flonase and use Benadryl at night as it is an excellent drying agent. If his symptoms persist beyond the next week, he should return to the clinic or follow up with his PCP. He might need an oral steroid at that point. Medications: New oopivixf-ucqtyqzpb-ZV 3.5-10,000-1 mg/mL-unit/mL-% 4 drps otic (ear) right Q8H 10 mL 0RF 7 days Coding Level of Care Code Est Pt Level 3 (01295) Diagnoses Decreased hearing of right ear H91.91 Laterality: right Acute diffuse otitis externa of right ear H60.311 Otitis externa type: diffuse Chronicity: acute Laterality: right CPT Codes Office Procedure - CPT: 60875-Inz Irrigation/Lavage ([id number])
[2025-02-28 10:19] VITALS: BP 130/82; PULSE 75; TEMP 37.2; O2SAT 98
--- OUTSIDE RECORDS SUMMARY | 2025-02-28 11:43 | XMS_ITS | Data Portability ---
Author Organization [facility]EL gal[facility] [address] Address [address] [place] [address] Assessment No assessment recorded. Plan of Treatment [...] SNOMED-CT Code Diagnosis ICD10 Code Diagnosis Note [id number] [address] [facility] [place] [address] 10/15/2020 08:29:24 10/15/2020 10:54:10 [id number] [address] [place] [address] 12/27/2018 11:53:06 12/27/2018 13:01:39 [id number] [address] [place] [address] 05/17/2020 08:02:06 05/17/2020 09:03:15 [id number] Dion Alicea NP [address] [place] [address] 11/22/2022 08:15:23 11/22/2022 09:10:22 History and physical examination, pre-employment [id number] Z02.1 Health Concerns Section Related Observation LastModified [...] Alicea NP [address] [place], [address], [place] - [facility] 11/22/2022 08:39:42
== END 2025-02-28 11:05 | disposition home or self-care (01) ==
PROVIDERS: PCP Internal Medicine; Visit Provider Physician Assistant
DX: H91.91 Unspecified hearing loss, right ear (principal); H60.311 Diffuse otitis externa, right ear; H61.23 Impacted cerumen, bilateral

== ENCOUNTER → 2025-02-28 10:05 | Outpatient (BNVA) | payer OTHER, SELFPAY | PROVIDERS: PCP Internal Medicine; Visit Provider Physician Assistant | DX: H91.91 Unspecified hearing loss, right ear (principal); H60.311 Diffuse otitis externa, right ear | CPT/HCPCS: 69209 ==

== ENCOUNTER 2025-03-08 13:01 | Outpatient (AMB) | payer OTHER, SELFPAY ==
--- NOTE | 2025-03-08 13:31 | A.OFFPC_ITS ---
Vital Signs 03/08/25 13:33 Height 5 ft 11 in Weight 223 lb BMI 31.1 BP 132/80 Blood Pressure Location Rt brachial Position Sitting Respiration 16 Pulse 65 Pulse Source Pulse Oximeter Temp 98.5 F Temp Source Oral Pulse Oximetry (%) 96 Oxygen Delivery Method Room Air Intake Visit Reasons: F/U BP Intake Note: Pt is here today to f/u HTN Allergies No Known Allergies Allergy (Verified 03/08/25 14:03) Medication List - Last Reconciled 03/08/25 by Winsome Ruano MD alprazolam 0.5 mg PO DAILY PRN anastrozole 1 mg PO USEASDIRECTD clonazepam 1 mg PO BID PRN dextroamphetamine sulfate 10 mg PO DAILY famotidine (Pepcid) 20 mg PO BEDTIME cyvwxtcv-uqlqdcvie-DC 3.5-10,000-1 mg/mL-unit/mL-% 4 drps otic (ear) right Q8H 7 days omeprazole 20 mg PO DAILY ondansetron 8 mg PO Q8H polyethylene glycol 3350 17 grams PO .every other day psyllium husk grams PO testosterone cypionate 50 mg IM Q2W Tobacco use date assessed: 03/08/25 Dental Screening Dental Screen Date: 03/08/25 Did you have a dental visit in the last 12 months?: No Did you have a dental problem in the last 6 months where you did not have access to dental care?: No Was dental information given to patient?: No HPI F/U BP HPI Details 44-year-old male here today for follow-u p on his blood pressure. He is currently not on any antihypertensive medication, but has been following a low- salt diet and has been exercising regularly. Blood pressure today is within normal limits but keeps fluctuating when checked at home, goes up to a high of 160/100. Denies any current headaches, no shortness of breath or dizziness. Also complains of decreased hearing mainly in the right ear.. [facility] Medical History (Updated 03/08/25 @ 14:25 by Winsome Ruano MD) Tinnitus of right ear Perforated right tympanic membrane on examination Decreased hearing of right ear Labile blood pressure Fatigue Muscle ache of extremity Diverticulosis Tubular adenoma of colon Irregular bowel habits History of Helicobacter pylori infection Hypogonadism in male ADD (attention deficit disorder) Chronic GERD Chronic fatigue Surgical History History of hemorrhoidectomy (03/13/23) Hemorrhoids History of esophagogastroduodenoscopy (EGD) Hx of colonoscopy Hx of left inguinal hernia repair Hx of appendectomy Social History Housing: House Alcohol intake: current Alcohol intake frequency: a few times a week Alcohol type: hard liquor Patient Tobacco Use Status: Never used Tobacco e-Cigarette/Vaping Use: Never Used Second Hand Smoke Exposure: No Current occupational status: other Current occupation: self employed Cognitive needs: No Hearing needs: No Vision needs: No Questionnaire PHQ-9 Over the last 2 weeks, how often have you been bothered by any of the following problems? 1. Little interest or pleasure in doing things: several days 2. Feeling down, depressed, or hopeless: not at all 3. Trouble falling or staying asleep, or sleeping too much: not at all 4. Feeling tired or having little energy: more than half the days 5. Poor appetite or overeating: not at all 6. Feeling bad about yourself - or that you are a failure or have let yourself or your family down: not at all 7. Trouble concentrating on things, such as reading the newspaper or watching television: several days 8. Moving or speaking so slowly that other people could have noticed. Or the opposite - being so fidgety or restless that you have been moving around a lot more than usual: not at all 9. Thoughts that you would be better off or of hurting yourself in some way: not at all Total score: 4 Depression Screening Interpretation: Negative Depression Screening Done: Yes 74282 - PHQ-9 Billing: Yes Source: Developed by Drs. Khanh Arias, Heaven Haile, Jareth Myers and colleagues, with an educational lorraine from [employer]. Thrive Questionnaire Date Thrive assessed: 05/25/24 I am a: Patient What is your living situation today?: I choose not to answer this question Within the past 12 months, did the food you bought not last and you didn't have the money to get more?: I choose not to answer this question Within the past 12 months, did you worry whether your food would run out before you got money to buy more?: I choose not to answer this question Do you have trouble paying for medicines?: I choose not to answer this question Do you have trouble getting transportation to medical appointments?: I choose not to answer this question Do you have trouble paying your heating and electricity bill?: I choose not to answer this question Do you have trouble taking care of your child, family member or friend?: I choose not to answer this question Do you have trouble with day-to-day activities such as bathing, preparing meals, shopping, managing finances, etc.?: I choose not to answer this question Are you currently unemployed and looking for a job?: I choose not to answer this question Are you interested in more education?: I choose not to answer this question Please select the resources that you would like help with: None Currently or been in a relationship where the following occur: I choose not to answer THRIVE Score: 0 AUDIT C Alcohol Use Questionnaire (AUDIT-C) 1. How often do you have a drink containing alcohol?: Monthly or less 2. How many drinks containing alcohol do you have on a typical day when you are drinking?: 1 or 2 3. How often do you have six or more drinks on one occasion?: Never Total Score: 1 KEYONNA-7 AMB Questionnaire KEYONNA-7 Date KEYONNA - 7 assessed: 03/08/25 Feeling nervous, anxious, or on edge: 1 = Several days Not being able to stop or control worryin = Several days Worrying too much about different things: 1 = Several days Trouble relaxin = Several days Being so restless that it is hard to sit still: 0 = Not at all Becoming easily annoyed or irritable: 1 = Several days Feeling afraid as if something awful might happen: 0 = Not at all Total KEYONNA-7 score (0-4 normal; 5-9 mild; 10-14 moderate; 15-21 severe): 5 Source: Developed by Drs. Khanh Arias, Heaven Haile, Jareth Myers and colleagues, with an educational lorraine from [employer] KEYONNA-7 Assessment Billing KEYONNA-7 Assessment Tool: KEYONNA-7 Assessment 56315 Review of Systems Const Denies fever(s), Denies headache(s) and Denies weakness Eyes Denies change in vision ENT Denies dizziness, Denies headache(s) and Denies nasal congestion Card Denies chest pain, Denies lightheadedness, Denies palpitations and Denies dyspnea Resp Denies chest congestion, Denies cough and Denies dyspnea GI Reports as per HPI Denies hematuria, Denies difficulty urinating, Denies dysuria, Denies urinary fr equency and Denies urinary urgency Musc Reports no additional complaints Neuro Denies dizziness, Denies headache(s) and Denies weakness Psych Reports no additional complaints Endo Denies polydipsia, Denies polyuria and Denies palpitations Celestino/Lymph Reports no additional complaints Aller/Immun Denies seasonal rhinorrhea Physical exam (Primary Care) Vital Signs: Last Vital Signs Temp 98.5 F 03/08/25 13:33 Pulse 65 03/08/25 13:33 Resp 16 03/08/25 13:33 BP 132/80 03/08/25 13:33 Pulse Ox 96 03/08/25 13:33 Oxygen Delivery Method Room Air 03/08/25 13:33 BMI result Body Mass Index 31.1 Tobacco/Smoking Status: Tobacco use Status Tobacco use date assessed 03/08/25 03/08/25 13:36 Patient Tobacco Use Status Never used Tobacco 03/08/25 13:36 e-Cigarette/Vaping Use Never Used 03/08/25 13:36 PHQ-9: PHQ-9 Score PHQ-9: Total score 4 03/13/25 00:25 Depression Screening Interpretation: Negative Thrive Assessment: Date of Thrive Assessment Date Thrive assessed 05/25/24 03/08/25 13:36 Currently or been in a relationship where the following occur: I choose not to answer Const Other: Alert oriented x3, no acute cardiorespiratory distress Orientation/consciousness: patient oriented x3 HENMT Ears: TM abnormal perforated (right ) without discharge Face and sinus: Yes face symmetric Mouth: Normal oral and palatal mucosa present, oropharynx normal and moist mucous membranes Neck Neck: Yes full ROM, Yes no lymphadenopathy and Yes supple Thyroid: Thyroid normal Resp Auscultation: clear to auscultation bilaterally Cardio Other: S1-S2 present regular rate and rhythm GI Palpation (GI): Soft to palpation and no hepatomegaly Auscultation: normal bowel sounds Neuro General: patient oriented x3, gait normal, moves all extremities, Normal light touch and pain sensation, no focal motor deficits and CN's II-XI intact bilaterally Extrem General: Yes full ROM, Yes no joint enlargement, Yes no clubbing, cyanosis or edema, Yes no calf tenderness and Yes normal gait Psych Appearance: grossly normal and well kempt Mental Status: mental status grossly normal Speech and movement: Normal speech and movement present Affect: normal affect Coding Level of Care Code Est Pt Level 4 (02959) Complex EM visit Add On G2211 Diagnoses Labile blood pressure R09.89 Decreased hearing of right ear H91.91 Perforated right tympanic membrane on examination H72.91 Chronic GERD K21.9 Additional Codes KEYONNA-7 Assessment Billing - KEYONNA-7 Assessment Tool: KEYONNA-7 Assessment 11935 ([id number]) PHQ-9 - 59725 - PHQ-9 Billing: Yes ([id number]) Assessment & Plan Assessment & Plan (1) Labile blood pressure: Code(s): R09.89 - Other specified symptoms and signs involving the circulatory and respiratory systems Category: Medical Plan: Referred to nephrology clinic for 24 hour blood pressure monitor. Reinforced importance of following a low-salt diet, doing relaxation techniques, (2) Decreased hearing of right ear: Code(s): H91.91 - Unspecified hearing loss, right ear Category: Medical Plan: ENT consult ordered for 4 had evaluation management (3) Perforated right tympanic membrane on examination: Code(s): H72.91 - Unspecified perforation of tympanic membrane, right ear Category: Medical Plan: ENT consult ordered (4) Chronic GERD: Comment: EGD done by Dr. Hernandez 02/16/2023 Code(s): K21.9 - Gastro-esophageal reflux disease without esophagitis Category: Medical Plan: Requesting a refill on her prescription for omeprazole, Rx sent for omeprazole 20 mg once a day Orders: Referrals Nephrology Referral R09.89 - Other specified symptoms and signs involving the circulatory and respiratory systems Ear/Nose/Throat Referral H72.91 - Unspecified perforation of tympanic membrane, right ear, H91.91 - Unspecified hearing loss, right ear, H93.11 - Tinnitus, right ear Medications: Refilled omeprazole 20 mg PO DAILY 90 caps 3RF
[2025-03-08 13:33] VITALS: BP 132/80; PULSE 65; RESP 16; TEMP 36.9; O2SAT 96; BMI 31.1
--- OUTSIDE RECORDS SUMMARY | 2025-03-08 15:28 | XMS_ITS | Data Portability ---
Author Organization [facility]ANEL [facility]vez [address] Address [address] [place] [address] Assessment No assessment recorded. Plan of Treatment [...] SNOMED-CT Code Diagnosis ICD10 Code Diagnosis Note [id number] [address] [facility] [place] [address] 10/15/2020 08:29:24 10/15/2020 10:54:10 [id number] [address] [place] [address] 12/27/2018 11:53:06 12/27/2018 13:01:39 [id number] [address] [place] [address] 05/17/2020 08:02:06 05/17/2020 09:03:15 [id number] Dion Alicea NP [address] [place] [address] 11/22/2022 08:15:23 11/22/2022 09:10:22 History and physical examination, pre-employment [id number] Z02.1 Health Concerns Section Related Observation LastModified [...] Alicea NP [address] [place], [address], [place] - [facility] 11/22/2022 08:39:42
== END 2025-03-08 14:26 | disposition home or self-care (01) ==
LOC: HO.HMCC 13:02
PROVIDERS: PCP Internal Medicine; Visit Provider Internal Medicine
DX: R09.89 Other specified symptoms and signs involving the circulatory and respiratory systems (principal); H91.91 Unspecified hearing loss, right ear; H72.91 Unspecified perforation of tympanic membrane, right ear; K21.9 Gastro-esophageal reflux disease without esophagitis

== ENCOUNTER → 2025-03-08 13:01 | Outpatient (BNVA) | payer OTHER, SELFPAY | PROVIDERS: PCP Internal Medicine; Visit Provider Internal Medicine | DX: R09.89 Other specified symptoms and signs involving the circulatory and respiratory systems (principal); H91.91 Unspecified hearing loss, right ear; H72.91 Unspecified perforation of tympanic membrane, right ear; K21.9 Gastro-esophageal reflux disease without esophagitis | CPT/HCPCS: 96127 ==

== ENCOUNTER 2025-05-23 13:22 | Outpatient (AMB) | payer OTHER, SELFPAY ==
--- NOTE | 2025-05-23 13:31 | A.OFFPC_ITS ---
Vital Signs 05/23/25 13:36 Height 5 ft 11 in Weight 227 lb BMI 31.7 BP 130/52 L Blood Pressure Location Lt brachial Position Sitting Respiration 16 Pulse 65 Pulse Source Pulse Oximeter Temp 98.1 F Pulse Oximetry (%) 98 Oxygen Delivery Method Room Air Intake Visit Reasons: Annual PE Intake Note: Pt is here today for his PE: (Patient declines HCP) Allergies No Known Allergies Allergy (Verified 05/23/25 13:54) Medication List - Last Reconciled 05/23/25 by Winsome Ruano MD alprazolam 0.5 mg PO DAILY PRN anastrozole 1 mg PO USEASDIRECTD clonazepam 1 mg PO BID PRN dextroamphetamine sulfate 10 mg PO DAILY famotidine (Pepcid) 20 mg PO BEDTIME omeprazole 20 mg PO DAILY ondansetron 8 mg PO Q8H polyethylene glycol 3350 17 grams PO .every other day testosterone cypionate 50 mg IM Q2W Tobacco use date assessed: 05/23/25 Dental Screening Dental Screen Date: 03/08/25 Did you have a dental visit in the last 12 months?: Yes Did you have a dental problem in the last 6 months where you did not have access to dental care?: Yes Was dental information given to patient?: Patient has dentist HPI Annual PE HPI Details 44-year-old male with history of hypogon adism in male, currently being followed by urologist in [place], has attention deficit disorder currently on dextroamphetamine sulfate 10 mg daily in has chronic GERD currently stable and controlled on famotidine and omeprazole, here today for his physical exam. Has been feeling well, but experiencing intermittent episodes of low back pain, no history of trauma strenuous exertion. Blood pressure has been stable. Up-to-date with his colon cancer screening, had a colonoscopy done in [address] Hernandez, with removal of a a adenomatous polyp, repeat due again in 2027. [facility] Medical History (Updated 05/29/25 @ 01:16 by Winsome Ruano MD) Lumbago Tinnitus of right ear Perforated right tympanic membrane on examination Decreased hearing of right ear Labile blood pressure Fatigue Muscle ache of extremity Diverticulosis Tubular adenoma of colon Irregular bowel habits History of Helicobacter pylori infection Hypogonadism in male ADD (attention deficit disorder) Chronic GERD Chronic fatigue Surgical History History of hemorrhoidectomy (03/13/23) Hemorrhoids History of esophagogastroduodenoscopy (EGD) Hx of colonoscopy Hx of left inguinal hernia repair Hx of appendectomy Social History Housing: House Alcohol intake: current Alcohol intake frequency: a few times a week Alcohol type: hard liquor Patient Tobacco Use Status: Never used Tobacco e-Cigarette/Vaping Use: Never Used Second Hand Smoke Exposure: No Current occupational status: other Current occupation: self employed Cognitive needs: No Hearing needs: No Vision needs: No Questionnaire PHQ-9 Over the last 2 weeks, how often have you been bothered by any of the following problems? Depression Screening Interpretation: Negative Depression Screening Done: Yes Source: Developed by Drs. Khanh Arias, Heaven Haile, Jareth Myers and colleagues, with an educational lorraine from [employer]. Thrive Questionnaire Date Thrive assessed: 03/08/25 I am a: Patient What is your living situation today?: I choose not to answer this question Within the past 12 months, did the food you bought not last and you didn't have the money to get more?: I choose not to answer this question Within the past 12 months, did you worry whether your food would run out before you got money to buy more?: I choose not to answer this question Do you have trouble paying for medicines?: I choose not to answer this question Do you have trouble getting transportation to medical appointments?: I choose not to answer this question Do you have trouble paying your heating and electricity bill?: I choose not to answer this question Do you have trouble taking care of your child, family member or friend?: I choose not to answer this question Do you have trouble with day-to-day activities such as bathing, preparing meals, shopping, managing finances, etc.?: I choose not to answer this question Are you currently unemployed and looking for a job?: I choose not to answer this question Are you interested in more education?: I choose not to answer this question Please select the resources that you would like help with: None Currently or been in a relationship where the following occur: I choose not to answer THRIVE Score: 0 KEYONNA-7 AMB Questionnaire KEYONNA-7 Date KEYONNA - 7 assessed: 03/08/25 Source: Developed by Drs. Khanh Arias, Heaven Haile, Jareth Myers and colleagues, with an educational lorraine from [employer]. Review of Systems Const Denies fever(s), Denies headache(s) and Denies weakness Eyes Denies change in vision ENT Denies dizziness, Denies headache(s) and Denies nasal congestion Card Denies chest pain, Denies lightheadedness, Denies palpitations and Denies dyspnea Resp Denies chest congestion, Denies cough and Denies dyspnea GI Reports as per HPI Denies hematuria, Denies difficulty urinating, Denies dysuria, Denies urinary frequency and Denies urinary urgency Musc Reports no additional complaints Skin/Breast Denies dry skin, Denies lesions and Denies rash Neuro Denies dizziness, Denies headache(s) and Denies weakness Psych Reports no additional complaints Endo Denies polydipsia, Denies polyuria and Denies palpitations Celestino/Lymph Reports no additional complaints Aller/Immun Denies seasonal rhinorrhea Physical exam (Primary Care) Vital Signs: Last Vital Signs Temp 98.1 F 05/23/25 13:36 Pulse 65 05/23/25 13:36 Resp 16 05/23/25 13:36 BP 130/52 L 05/23/25 13:36 Pulse Ox 98 05/23/25 13:36 Oxygen Delivery Method Room Air 05/23/25 13:36 BMI result Body Mass Index 31.7 Tobacco/Smoking Status: Tobacco use Status Tobacco use date assessed 05/23/25 05/23/25 13:32 Patient Tobacco Use Status Never used Tobacco 05/23/25 13:32 e-Cigarette/Vaping Use Never Used 05/23/25 13:32 Depression Screening Interpretation: Negative Thrive Assessment: Date of Thrive Assessment Date Thrive assessed 03/08/25 05/23/25 13:32 Currently or been in a relationship where the following occur: I choose not to answer Const Other: Alert oriented x3, no acute cardiorespiratory distress Orientation/consciousness: patient oriented x3 HENMT Face and sinus: Yes face symmetric Mouth: Normal oral and palatal mucosa present, oropharynx normal and moist mucous membranes Eyes General: appearance normal, both eyes and all related structures Neck Neck: Yes full ROM, Yes no lymphadenopathy and Yes supple Thyroid: Thyroid normal Chest Chest palpation & inspection: normal inspection of the chest Resp Auscultation: clear to auscultation bilaterally Cardio Other: S1-S2 present regular rate and rhythm GI Palpation (GI): Soft to palpation and no hepatomegaly Auscultation: normal bowel sounds Male General Exam: Yes normal external exam Back/Spine/Pelvis Thoracic/Lumbar Spine: straight leg raise negative bilaterally and paraspinal muscle tenderness on the left Skin General skin exam: no rashes or lesions noted Lesions: no lesions Neuro General: patient oriented x3, gait normal, moves all extremities, Normal light touch and pain sensation, no focal motor deficits and CN's II-XI intact bilaterally Extrem General: Yes full ROM, Yes no joint enlargement, Yes no clubbing, cyanosis or edema, Yes no calf tenderness and Yes normal gait Psych Appearance: grossly normal and well kempt Mental Status: mental status grossly normal Speech and movement: Normal speech and movement present Affect: normal affect Coding Level of Care Code Est Pt Prev Care 40-64y(89536) Diagnoses Annual visit for general adult medical examination with abnormal findings Z00.01 Low back pain, unspecified back pain laterality, unspecified chronicity, unspecified whether sciatica present M54.50 Chronicity: unspecified Sciatica presence: unspecified whether sciatica present Back pain laterality: unspecified ADD (attention deficit disorder) F98.8 Hypogonadism in male E29.1 Chronic GERD K21.9 Assessment & Plan Assessment & Plan (1) Annual visit for general adult medical examination with abnormal findings: Code(s): Z00.01 - Encounter for general adult medical examination with abnormal findings Category: Medical Plan: Patient reminded to get his fasting labs done, already ordered Recommended dental visit every 6 months and regular eye exams, at least every 2 years. Take adequate calcium in diet and vitamin-D 3 at 2000 IU per cap once a day, in addition to weight-bearing exercises to help maintain good muscle tone and weight control. Instructed to do self-testicular exam check for any mass. Up-to-date with his screening colonoscopy (2) Lumbago: Code(s): M54.50 - Low back pain, unspecified Category: Medical Qualifiers: Chronicity: unspecified Sciatica presence: unspecified whether sciatica present Back pain laterality: unspecified Qualified Code(s): M54.50 - Low back pain, unspecified Plan: baseline x-ray of lumbar spine ordered. In the meantime patient advised to do stretching exercises, try Salonpas patch applied to affected area at least twice a day dental clinic if any worsening of symptoms or any abnormality seen on x- ray (3) ADD (attention deficit disorder): Comment: ff'd by Jocelyn Hedrick Code(s): F98.8 - Other specified behavioral and emotional disorders with onset usually occurring in childhood and adolescence Category: Medical Plan: Followed by psychiatrist currently stable and controlled on present treatment (4) Hypogonadism in male: Comment: ff'd at [facility] , Dr Gurpreet Ramirez in [place], [place] Code(s): E29.1 - Testicular hypofunction Category: Medical Plan: Followed by urologist in [place] (5) Chronic GERD: Comment: EGD done by Dr. Hernandez 02/16/2023 Code(s): K21.9 - Gastro-esophageal reflux disease without esophagitis Category: Medical Plan: Continued on famotidine and omeprazole Orders: Orders XR lumbar spine 2-3V 05/23/25 M54.50 - Low back pain, unspecified
[2025-05-23 13:36] VITALS: BP 130/52; PULSE 65; RESP 16; TEMP 36.7; O2SAT 98; BMI 31.7
--- OUTSIDE RECORDS SUMMARY | 2025-05-23 14:34 | XMS_ITS | Data Portability ---
Author Organization [facility] [address] Address [address] [place] [address] Assessment No assessment recorded. Plan of Treatment [...] SNOMED-CT Code Diagnosis ICD10 Code Diagnosis Note [id number] [address] [place] [address] 10/15/2020 08:29:24 10/15/2020 10:54:10 [id number] [address] [place] [address] 12/27/2018 11:53:06 12/27/2018 13:01:39 [id number] [address] [place] [address] 05/17/2020 08:02:06 05/17/2020 09:03:15 [id number] Dion Alicea NP [address] [place] [address] 11/22/2022 08:15:23 11/22/2022 09:10:22 History and physical examination, pre-employment [id number] Z02.1 Health Concerns Section Related Observation LastModified by Organization Detai ls LastModified Time None Recorded Concern Status LastModified by Organization Details LastModified Time None Recorded Advance Directives Directive None Recorded Payers Insurance Date Sequence Insurance Name Policy Number Policy Jack Covered Member ID Jack Member ID Guarantor Name 10/31/2022 FEE FOR SERVICE Ted Shantal Notes Date Note Type Note Provider Name and Address Organization Details Recorded Time 11/22/2022 text/html sport physical Dion Alicea NP [address] [place], [address], [place] - [facility] 11/22/2022 08:39:42
--- OUTSIDE RECORDS SUMMARY | 2025-05-23 14:34 | XMS_ITS ---
Author Name [facility] Organization Unknown Care Team Organization Name Specialty Phone Email Start Date End Da te [facility] ([facility]
== END 2025-05-23 14:16 | disposition home or self-care (01) ==
LOC: HO.HMCC 13:23
PROVIDERS: PCP Internal Medicine; Visit Provider Internal Medicine
DX: Z00.01 Encounter for general adult medical examination with abnormal findings (principal); M54.50 Low back pain, unspecified; F98.8 Other specified behavioral and emotional disorders with onset usually occurring in childhood and adolescence; E29.1 Testicular hypofunction; K21.9 Gastro-esophageal reflux disease without esophagitis

== ENCOUNTER 2025-07-25 15:52 | Outpatient (AMB) | payer OTHER, SELFPAY ==
[2025-07-25 15:59] VITALS: BP 156/80; PULSE 88; O2SAT 97; BMI 30.5
--- NOTE | 2025-07-25 15:59 | A.OFFVIS_ITS ---
Vital Signs 07/25/25 15:59 Height 5 ft 11 in Weight 219 lb BMI 30.5 BP 156/80 H Blood Pressure Location Rt brachial Position Sitting Pulse 88 Pulse Source Pulse Oximeter Pulse Oximetry (%) 97 Oxygen Delivery Method Room Air Intake Visit Reasons: Gerd, Constipation r/s 08/2024 Intake Note: Est pt for mgmt of GERD + Diverticulosis. LEEANN 2022. CC; C.O. umbilical region abd pain, mild + intermittent constipation, intermittent nausea. Pt denies any additional sx or concerns at this time. [employer] Required: No Accompanied by: Self / Same As Patient Allergies No Known Allergies Allergy (Verified 07/25/25 16:00) HPI HPI Gerd, Constipation r/s 08/2024: Details: LAST VISIT: Hemorrhoids Diverticulosis Chronic GERD Constipation Plan Patient was encouraged to avoid dietary triggers and late night snacking. Staying upright for minimum 3 hours after meals discussed with patient. Continue omeprazole and famotidine. Continue bowel regimen with fiber supplement. Patient can continue taking magnesium at bedtime and MiraLax every other day as needed. Patient was also encouraged to increase fluid intake and activity to promote better bowel motility. Patient was encouraged to call his surgeon for follow-up appointment that he missed couple weeks ago. I will see patient in 1 year, sooner on as needed basis. Patient is agreeable to this plan and verbalizes understanding of instructions. He was given the opportunity to ask questions and all questions answered. ? Thank you for allowing me to participate in his care Refilled omeprazole 20 mg PO DAILY 90 caps 3RF TODAY'S VISIT: Patient is here today for requested visit. Patient reports abdominal pain postprandially. Occasional abdominal bloating.. Patient reports acid reflux, however it is suppressed for the most part with omeprazole. Patient reports that if he misses a dose he will have acid reflux. Patient reports occasional dyspepsia without dysphagia or odynophagia. Denies melena, hematochezia, unintentional weight loss or ribbon like stools. Patient reports occasional constipation. Reports that when he moves his bowels she does not feel like he empties them completely. Patient reports that he used to take psyllium husk, however he with frequently forget to take it. Patient had a upper endoscopy and colonoscopy in January of 2023. One tubular adenoma found on colonoscopy recommended for 5 years follow-up. [facility] Medical History Lumbago Tinnitus of right ear Perforated right tympanic membrane on examination Decreased hearing of right ear Labile blood pressure Fatigue Muscle ache of extremity Diverticulosis Tubular adenoma of colon Irregular bowel habits History of Helicobacter pylori infection Hypogonadism in male ADD (attention deficit disorder) Chronic GERD Chronic fatigue Surgical History History of hemorrhoidectomy (03/13/23) Hemorrhoids History of esophagogastroduodenoscopy (EGD) Hx of colonoscopy Hx of left inguinal hernia repair Hx of appendectomy Social History Housing: House Alcohol intake: current Alcohol intake frequency: a few times a week Alcohol type: hard liquor Patient Tobacco Use Status: Never used Tobacco e-Cigarette/Vaping Use: Never Used Second Hand Smoke Exposure: No Current occupational status: other Current occupation: self employed Cognitive needs: No Hearing needs: No Vision needs: No Review of Systems Const Denies weight gain and Denies weight loss ENT Reports no additional complaints, Denies dysphagia and Denies odynophagia Card Reports no additional complaints Resp Reports no additional complaints GI Denies abdominal pain, Denies belching, Denies melena, Denies bloating, Denies change in bowel habits, Reports constipation, Denies dysphagia, Denies excessive flatus, Denies dyspepsia, Denies heartburn, Denies diarrhea, Reports loose stools, Denies nausea, Denies odynophagia and Denies vomiting Reports no additional complaints Musc Reports no additional complaints Neuro Reports no additional complaints Psych Reports no additional complaints Endo Reports no additional complaints Physical Exam Const General: healthy appearing, no acute distress and well developed Nutritional Appearance: well nourished Orientation/consciousness: patient oriented x3 Resp Effort & Inspection: normal respiratory effort, able to speak in complete sentences, no tracheal deviation and symmetric chest movement Auscultation: clear to auscultation bilaterally Cardio Rate: regular rate GI Inspection: Yes normal to inspection and No distended Palpation (GI): Soft to palpation, not firm, nontender and No hepatosplenomegaly present Auscultation: normal bowel sounds General: Yes no CVA tenderness Back/Spine/Pelvis Back: no CVA tenderness Skin General skin exam: elasticity normal, turgor normal and dry skin Neuro General: patient oriented x3 Psych Appearance: grossly normal Mental Status: mental status grossly normal Assessment & Plan Assessment & Plan (1) Abdominal bloating: Code(s): R14.0 - Abdominal distension (gaseous) (2) Abdominal pain: Code(s): R10.9 - Unspecified abdominal pain Qualifiers: Abdominal location: generalized Qualified Code(s): R10.84 - Generalized abdominal pain (3) Constipation: Code(s): K59.00 - Constipation, unspecified Qualifiers: Constipation type: slow transit constipation Qualified Code(s): K59.01 - Slow transit constipation (4) Chronic GERD: Code(s): K21.9 - Gastro-esophageal reflux disease without esophagitis Category: Medical (5) Diverticulosis: Code(s): K57.90 - Diverticulosis of intestine, part unspecified, without perforation or abscess without bleeding Category: Medical (6) Hemorrhoids: Code(s): K64.9 - Unspecified hemorrhoids Category: Surgical Qualifiers: Hemorrhoid type: unspecified Qualified Code(s): K64.9 - Unspecified hemorrhoids Plan Patient will start taking fiber supplements with pre and probiotics. Increase fluid intake and activity to promote better bowel motility. Patient was encouraged to avoid dietary triggers. Discussed with patient low FODMAP diet. List of food recommended as well as list of food to avoid given to patient. Patient noticed abdominal bloating with lactose. Continue omeprazole. Patient was also encouraged to avoid dietary triggers and late night snacking. Staying upright for minimal 3 hours after meals discussed with patient. Patient will follow-up in 4 months, sooner on as needed basis. He is agreeable to this plan and verbalizes understanding of instructions. He was given the opportunity to ask questions and all questions answered. Thank you for allowing me to participate in his care Orders: Orders TSH reflex Free T4 Today K59.00 - Constipation, unspecified Vitamin D 25-OH (D2 and D3) Today E55.9 - Vitamin D deficiency, unspecified Transglutaminase IgA Today R10.9 - Unspecified abdominal pain Vitamin B12 and Folate Today R19.7 - Diarrhea, unspecified Lipase Today R10.9 - Unspecified abdominal pain Coding Level of Care Code Est Pt Level 4 (91698) Complex EM visit Add On G2211 Diagnoses Abdominal bloating R14.0 Generalized abdominal pain R10.84 Abdominal location: generalized Slow transit constipation K59.01 Constipation type: slow transit constipation Chronic GERD K21.9 Diverticulosis K57.90 Hemorrhoids, unspecified hemorrhoid type K64.9 Hemorrhoid type: unspecified Time Spent (min) 40 Comment 25 minutes spent with patient and additional 15 minutes spent reviewing his records
== END 2025-07-25 16:35 | disposition home or self-care (01) ==
LOC: HO.HGI 15:53
PROVIDERS: PCP Internal Medicine; Visit Provider Nurse Practitioner Family
DX: R14.0 Abdominal distension (gaseous) (principal); R10.84 Generalized abdominal pain; K59.01 Slow transit constipation; K21.9 Gastro-esophageal reflux disease without esophagitis; K57.90 Diverticulosis of intestine, part unspecified, without perforation or abscess without bleeding; K64.9 Unspecified hemorrhoids
CPT/HCPCS: 99214

== ENCOUNTER 2025-10-13 08:44 | Outpatient (AMB) | payer OTHER, SELFPAY ==
--- OUTSIDE RECORDS SUMMARY | 2025-10-13 08:46 | XMS_ITS | Data Portability ---
Author Organization [facility]ANEL [facility] [address] Address [address] [place] [address] Assessment No assessment recorded. Plan of Treatment [...] Diagnosis SNOMED-CT Code Diagnosis ICD10 Code Diagnosis IMO Codes Diagnosis Note [id number] [address] [place] [address] 10/15/2020 08:29:24 10/15/2020 10:54:10 [id number] [address] [place] [phone] 12/27/2018 11:53:06 12/27/2018 13:01:39 [id number] [address] [place] [address] 05/17/2020 08:02:06 05/17/2020 09:03:15 [id number] Dion Alicea NP [address] [place] [address] 11/22/2022 08:15:23 11/22/2022 09:10:22 History and physical examination, pre-employment [id number] Z02.1 Health Concerns Section Related Observation LastModified [...] text/html sport physical Dion Alicea NP [address] [place], [address], [place] - [facility] 11/22/2022 08:39:42
[2025-10-13 09:09] VITALS: BP 142/80; PULSE 74; TEMP 36.5; O2SAT 98; BMI 31.2
--- NOTE | 2025-10-13 09:09 | AM.OFFWIN_ITS ---
Intake Vital Signs 10/13/25 09:09 Height 5 ft 11 in Weight 224 lb BMI 31.2 BP 142/80 H Blood Pressure Location Rt brachial Position Sitting Pulse 74 Pulse Source Pulse Oximeter Temp 97.7 F Temp Source Oral Pulse Oximetry (%) 98 Oxygen Delivery Method Room Air Intake Visit Reasons: EP Cat bite on RT hand, swelling Intake Note: pt presents wtih right hand swelling and pain with multiple scratches and a bite from his cat last night Patient Tobacco Use Status: Never used Tobacco Allergies No Known Allergies Allergy (Verified 10/13/25 09:11) Do you need a note to return to daycare/school/sports/work: Yes HPI HPI Comments History of Present Illness Details History of Present Illness - The patient is a 45-year-old individua l presenting with multiple cat bites to his right hand. - The incident occurred yesterday around 8:00 PM when the patient brought in a stray dog to find it's outpatient case manager, then attempted to machine pecan picker the cat who was freaked out by the dog, resulting in multiple bites and scratches. - The patient reports pain and difficult y moving the affected fingers. - The patient's last tetanus vaccination was two years ago. Review of Systems - Musculoskeletal: Reports pain and diff iculty moving fingers of the right hand. All systems reviewed and are unremarkable except as noted in HPI Physical Exam General: Cooperative, healthy appearing, comfortable, no acute distress and well developed Orientation: Patient oriented x3 Limitations: No limitations Head: Normal to inspection Ears: Hearing grossly normal bilaterally Nose: Normal External nose present Face and sinus: Normal facial exam Eyes: Appearance normal, both eyes and all related structures Neck: Normal visual inspection and Yes full ROM Respiratory: Normal respiratory effort and able to speak in complete sentences. Skin: No rashes or lesions noted, but multiple scratches and puncture wounds noted on the right hand, dorsal aspect between the 3rd and 4th digits, at the base of the first and fifth digits, scratches on ulnar side of wrist and on dorsal and palmar aspect with significant edema and reduced ROM 2/2 the edema Neuro: Patient oriented x3 Extremities: Normal to inspection except as above PFSH Medical History Lumbago Tinnitus of right ear Perforated right tympanic membrane on examination Decreased hearing of right ear Labile blood pressure Fatigue Muscle ache of extremity Diverticulosis Tubular adenoma of colon Irregular bowel habits History of Helicobacter pylori infection Hypogonadism in male ADD (attention deficit disorder) Chronic GERD Chronic fatigue Surgical History History of hemorrhoidectomy (03/13/23) Hemorrhoids History of esophagogastroduodenoscopy (EGD) Hx of colonoscopy Hx of left inguinal hernia repair Hx of appendectomy Social History Housing: House Alcohol intake: current Alcohol intake frequency: a few times a week Alcohol type: hard liquor Patient Tobacco Use Status: Never used Tobacco e-Cigarette/Vaping Use: Never Used Second Hand Smoke Exposure: No Current occupational status: other Current occupation: self employed Cognitive needs: No Hearing needs: No Vision needs: No Physical Exam Vital Signs: Last Vital Signs Temp 97.7 F 10/13/25 09:09 Pulse 74 10/13/25 09:09 BP 142/80 H 10/13/25 09:09 Pulse Ox 98 10/13/25 09:09 Oxygen Delivery Method Room Air 10/13/25 09:09 BMI result Body Mass Index 31.2 Assessment & Plan Assessment & Plan (1) Cat bite of hand: Code(s): S61.459A - Open bite of unspecified hand, initial encounter; W55.01XA - Bitten by cat, initial encounter Qualifiers: Encounter type: initial encounter Laterality: right Qualified Code(s): S61.451A - Open bite of right hand, initial encounter; W55.01XA - Bitten by cat, initial encounter Plan: Patient was informed and verbally consented to the use of an ambient scribe for clinic note documentation during this visit. Multiple Cat Bites - An x-ray of the right hand is ordered to check for any retained foreign bodies. - Prescribed antibiotics to prevent infection, with instructions to take with food and avoid dairy. - Referral to a hand specialist is provided for further evaluation if symptoms do not improve. Orders: Orders XR hand RT min 3V Today S61.459A - Open bite of unspecified hand, initial encounter, W55.01XA - Bitten by cat, initial encounter Referrals Orthopedics Referral S61.459A - Open bite of unspecified hand, initial encounter, W55.01XA - Bitten by cat, initial encounter Medications: New amoxicillin-pot clavulanate 875-125 mg 1 tab PO Q12H 14 tabs 0RF Coding Level of Care Code Est Pt Level 4 (46193) Diagnoses Cat bite of right hand, initial encounter S61.451A; W55.01XA Encounter type: initial encounter Laterality: right
== END 2025-10-13 09:29 | disposition home or self-care (01) ==
PROVIDERS: PCP Internal Medicine; Visit Provider Physician Assistant
DX: S61.451A Open bite of right hand, initial encounter (principal); W55.01XA Bitten by cat, initial encounter

== ENCOUNTER 2025-10-13 08:44 | Outpatient (REF) | payer OTHER, SELFPAY ==
--- NOTE | ~2025-10-13 | XR_ITS ---
EXAMINATION: XR HAND 3 OR MORE VIEWS RIGHT HISTORY: S61.459A - Open bite of unspecified hand, initial encounter COMPARISON: There are no prior studies available for comparison. FINDINGS: Three views of the right hand are submitted. Osseous mineralization is normal. There is no fracture or dislocation. The joint spaces are preserved. The soft tissues are unremarkable. XR/XR hand RT min 3V IMPRESSION: Unremarkable examination of the right hand. Electronically signed by: Khanh Robledo MD 10/13/2025 09:49 AM EST
--- NOTE | ~2025-10-13 | XR_ITS ---
EXAMINATION: XR LUMBOSACRAL SPINE CLINICAL INFORMATION: M54.50 - Low back pain, unspecified COMPARISON: Correlated to CT abdomen pelvis dated June 24, 2024. TECHNIQUE: AP and lateral views. FINDINGS: Endplate sclerosis decreased intervertebral disc height and marginal osteophyte formation with the likely a Schmorl nodes at the L4-5 level. Facet joint hypertrophy at L5-S1. No gross malalignment. No acute cortical disruption. XR/XR lumbar spine 2-3V IMPRESSION: Spondylosis, moderate to severe at L4-5, similar since prior CT abdomen and pelvis. Superimposed chronic inflammatory process cannot be excluded. Electronically signed by: Rigoberto Gunter MD 10/13/2025 09:50 AM EST
[2025-10-13 15:08] LABS: Folate 7.6 ng/mL (> or = 4.0); Vitamin B12 503 pg/mL (200-900)
[2025-10-13 16:24] LABS: Alanine Aminotransferase 39 U/L (0-40); Albumin Level 4.7 g/dL (3.5-5.0); Alkaline Phosphatase 70 U/L (39-117); Anion Gap 12 (12-20); Aspartate Amino Transferase 31 U/L (5-37); Blood Urea Nitrogen 9 mg/dL (9-16); Calcium 9.2 mg/dL (8.4-10.2); Carbon Dioxide 30 mmol/L (22-29); Chloride 106 mmol/L (96-108); Cholesterol 237 mg/dL (<200); Estimated Glomerular Filt Rate > 60; HDL Cholesterol 58 mg/dL (>40); Lipase 31 U/L (8-78); Potassium 3.7 mmol/L (3.3-5.1); Sodium 144 mmol/L (135-145); Total Protein 7.2 g/dL (6.5-8.0); Triglycerides 132 mg/dL (<150)
[2025-10-18 14:33] LABS: Vitamin D 25-OH, D2 <4 ng/mL; Vitamin D 25-OH, D3 21 ng/mL; Vitamin D 25-OH, Total 21 ng/mL (30-100)
== END 2025-10-13 08:45 | disposition home or self-care (01) ==
LOC: HO.HMGCX 08:44
PROVIDERS: Absent Provider Physician Assistant; PCP Internal Medicine; Referring Provider Nurse Practitioner Family; Visit Provider Internal Medicine
DX: S61.451A Open bite of right hand, initial encounter (principal); F98.8 Other specified behavioral and emotional disorders with onset usually occurring in childhood and adolescence; R09.89 Other specified symptoms and signs involving the circulatory and respiratory systems; K21.9 Gastro-esophageal reflux disease without esophagitis; Z13.6 Encounter for screening for cardiovascular disorders; Z13.220 Encounter for screening for lipoid disorders; R19.7 Diarrhea, unspecified; K59.00 Constipation, unspecified; E55.9 Vitamin D deficiency, unspecified; R10.9 Unspecified abdominal pain; M54.50 Low back pain, unspecified; W55.01XA Bitten by cat, initial encounter
CPT/HCPCS: 36415; 72100; 73130; 80053; 80061; 82306; 82607; 82746; 83690; 84443; 86364

== ENCOUNTER → 2025-10-13 09:27 | Outpatient (BNV) | payer OTHER, SELFPAY | PROVIDERS: Absent Provider Physician Assistant; PCP Internal Medicine; Referring Provider Nurse Practitioner Family; Visit Provider Radiology Diagnostic Radiology | DX: M54.50 Low back pain, unspecified (principal); S61.451A Open bite of right hand, initial encounter | CPT/HCPCS: 72100; 73130 ==